=== PATIENT | female | born 1935 | race Caucasian/White ===

== ENCOUNTER 2017-01-14 11:25 | Inpatient (IN) | payer MEDICARE, OTHER ==
[~2017-01-14] VITALS: Ht 177.8 cm; Wt 67.4 kg
[~2017-01-14 11:25] MED LIST: ASPIRIN81 MG PO; COUMADIN1 MG PO; COUMADIN4 MG PO; FLAGYL500 MG PO; GLUCOPHAGE500 MG PO; HUMALOG 30100 UNITS/ SC; HUMOLOG INSULIN; LEVAQUIN250 MG PO; LEVAQUIN500 MG PO; LEVOTHYROXINE75 MCG; LEVOTHYROXINE75 MCG PO; LOPRESSOR50 MG PO; LOVENOX30 MG/0.3 SC; NARCAN INJ0.4 MG/ML IV; NORVASC10 MG PO; PACERONE200 MG PO; PERCOCET 5/3251 TA1 PO; PLAVIX75 MG PO; PRAVACHOL20 MG PO; PROTONIX40 MG PO; SALINE FLUSH10 ML IJ; SYNTHROID88 MCG PO; TYLENOL325 MG PO; ZESTRIL10 MG PO; ZESTRIL40 MG PO; ZOFRAN4 MG PO
--- NOTE | 2017-01-14 11:30 | NUR ---
ARRIVE TO ROOM VIA WHEELCHAIR FROM DOCTOR'S OFFICE. ALERT AND ORIENTED. AMBULATE FROM WHEELCHAIR TO BED WITH CANE FROM HOME. UNABLE TO COMPLETE SENTENCE WITHOUT GETTING SOB. RECIEVES LOVENOX INJ. IV SITED TO LT AC 22G SUCCESSFUL X2 ATTEMPT. CONTINUE ADMISSION PROCESS. BED LOCKED AND LOW. CALL LIGHT IN REACH. TWO SIDERAILS UP.
[2017-01-14 12:55] LABS: BASOPHILS 0.4 % (0.0-2.0); EOSINOPHILS 2.9 % (0-7); HEMOGLOBIN 9.5 g/dL (12-16); IMMATURE GRANULOCYTES 0.2 % (0-5); LYMPHOCYTES 18.4 % (15-50); MCH 28.3 pg (26.0-34.0); MCHC 31.7 g/dL (31.0-37.0); MCV 89.3 fL (80.0-100.0); MONOCYTES 12.3 % (2-11); NEUTROPHILS 65.8 % (40-80); PLATELET COUNT 279 10x3/uL (130-400); RBC 3.36 10x6/uL (4.00-5.40); RDW 13.8 % (11.5-14.5); WBC 4.5 10x3/uL (4.8-10.8)
[2017-01-14 13:11] LABS: ALBUMIN 3.7 g/dL (3.4-5.0); ANION GAP 14.3 mmol/L (8-16); BILIRUBIN - TOTAL 0.45 mg/dL (0.2-1.3); CALCIUM 10.1 mg/dL (8.5-10.1); CARBON DIOXIDE 25.3 mmol/L (21.0-32.0); CREATININE - SERUM 1.3 mg/dL (0.6-1.3); POTASSIUM - SERUM 3.6 mmol/L (3.5-5.1); PROTEIN - SERUM 7.7 g/dL (6.4-8.2)
[2017-01-14 13:38] VITALS: BP 214/86; BMI 20.2
[2017-01-14 16:00] VITALS: BP 154/64
--- NOTE | 2017-01-14 17:52 | NUR ---
RESTING IN BED. NO CHANGE. DAUGHTER AT BEDSIDE. DENIES PAIN. CONTINUE PLAN OF CARE AND SAFETY PRECAUTIONS.
--- NOTE | 2017-01-14 21:10 | NUR ---
HS MEDS GIVEN WITH FRESH ICE WATER, DENIES PAIN OR NEEDS, BED LOW, CL IN REACH.
[2017-01-14 21:39] VITALS: BP 154/63
--- NOTE | 2017-01-14 22:33 | NUR ---
IN BED WATCHING TV, DENIES NEEDS.
--- NOTE | 2017-01-15 00:34 | NUR ---
MANAGER MENTAL HEALTH AT BEDSIDE TO OBTAIN VITALS, CALL LIGHT IN REACH. WILL CONTINUE WITH PLAN OF CARE.
[2017-01-15 01:40] VITALS: BP 178/73
--- NOTE | 2017-01-15 04:36 | NUR ---
RESTING WITH EYES CLOSED, RESPERATIONS EVEN, NO S/S DISTRESS NOTED.
[2017-01-15 04:56] VITALS: BP 136/66
--- NOTE | 2017-01-15 07:17 | NUR ---
ASSESSMENT COMPLETED. DENIES ANY NEEDS. PT GETS UP WITH ASSIST. WILL MONITOR.SR UP WITH CALL LIGHT IN REACH
[2017-01-15 08:01] VITALS: BP 149/58
[2017-01-15 12:24] VITALS: BP 103/64
[2017-01-15 13:28] VITALS: Ht 177.8 cm; Wt 67.4 kg
[2017-01-15 16:00] VITALS: BP 131/68
--- NOTE | 2017-01-15 16:06 | NUR ---
LYING QUIETLY. DENIES ANY NEEDS. CALL LIGHT IN REACH WITH SR UP
--- NOTE | 2017-01-15 19:46 | NUR ---
RESUMED CARE OF PT, LYING IN BED RESPIRATIONS EVEN AND UNLABORED ON ROOM AIR. LEFT AC SALINE LOCKED. PLAN OF CARE DISCUSSED, CALL LIGHT IN REACH. WILL CONTINUE TO MONITOR. SEE NURSE ASSESSMENT.
[2017-01-15 20:00] VITALS: BP 136/66
[2017-01-15 21:58] LABS: % SATURATION 8 % (15-55); IRON 29 ug/dl (35-150); TOTAL IRON BIND CAPACITY 336 ug/dl (260-445); UNSAT IRON BIND CAPACITY 307 ug/dl (150-375)
[2017-01-16] VITALS: BP 120/58
[2017-01-16 04:00] VITALS: BP 138/68
[2017-01-16 08:22] VITALS: BP 160/62
--- NOTE | 2017-01-16 10:21 | NUR ---
0715-AM ROUNDING: PT LAYING IN BED ON BACK WITH EYES CLOSED RESTING. ON ROOM AIR. NO MONITOR. IV SEEN TO LEFT AC THAT IS CURRENTLY SALINE LOCKED. SCDS ARE AT BEDSIDE. NO NEED AT CURRENT TIME. WILL CONTINUE TO MONITOR.
--- NOTE | 2017-01-16 12:39 | NUR ---
Nutrition follow-up: Diet: ADA consistent CHO PO intake 100% of most meals labs reviewed Wt: 148# RDN following.
[2017-01-16 12:42] VITALS: BP 111/59
--- NOTE | 2017-01-16 13:27 | HP ---
PATIENT: PHAN QUEZADA MEDICAL RECORD: [id number] ACCOUNT: [id number] LOCATION:[address] : 33 ADMISSION DATE: 01/14/17 HISTORY AND PHYSICAL EXAMINATION DATE OF ADMISSION: 01/14/2017 CHIEF COMPLAINT: Pneumonia. HISTORY OF PRESENT ILLNESS: This is an 81-year-old female who presented to my office with fevers, chills, myalgias over the last 5-6 days. She has had fever to go along with it as well as a cough. She just gotten weaker and weaker and had difficulty walking down our apple and our office. Chest x-ray in my office showed right lower lobe pneumonia and right middle lobe with her age, with her medical problems, and her inability to walk down the apple. She is being admitted for further evaluation of her pneumonia. PAST MEDICAL AND SURGICAL HISTORY: She has arthritis, type 2 diabetes, hyperlipidemia, hypertension, hypothyroidism, right carotid bruit, atrial fibrillation and sick sinus syndrome. PAST SURGICAL HISTORY: Hysterectomy, partial thyroidectomy, pacemaker and ORIF of a hip fracture in October 2013. ALLERGIES: SULFA. HOME MEDICATIONS: Metformin 500 mg once a day, Plavix 75 mg once a day, metoprolol tartrate 25 mg twice a day, aspirin 81 mg once a day, amlodipine 10 mg once a day, pravastatin 20 mg at bedtime, levothyroxine 75 mcg once a day. HABITS: She never smoked. No history of alcohol or drug abuse. SOCIAL HISTORY: She is retired. She is . FAMILY HISTORY: Noncontributory. REVIEW OF SYSTEMS: GENERAL: No major weight changes. HEENT: No particular sinus or allergy problems. RESPIRATORY: No history of asthma or emphysema. CARDIAC: No known coronary artery disease, but has history of atrial fibrillation and sick sinus syndrome, now has a pacemaker. She is followed by [facility]. GASTROINTESTINAL: Occasional reflux. GENITOURINARY: No significant problems there. MUSCULOSKELETAL: He has occasional back pain. She fell and broke her hip a few years ago. NEUROLOGIC: No headaches or seizures. PSYCHIATRIC: Denies depression or melancholia. PHYSICAL EXAMINATION: VITAL SIGNS: Temperature 98.1, blood pressure 140/70, respirations 22, heart rate 58 beats per minute. GENERAL: She is awake and alert, does not appear in acute distress, but cannot walk down the apple due to weakness and fatigue. HISTORY AND PHYSICAL [id number] PHAN QUEZADA HEENT: Grossly within normal limits. NECK: Supple. She has a right carotid bruit. HEART: Regular rate and rhythm without murmur. LUNGS: Fairly clear. Few rales noted on the right side more than the left. ABDOMEN: Soft, flat, nontender. EXTREMITIES: No edema. LABORATORY DATA: CBC with a white count of 4500, hemoglobin 9.5, hematocrit 30, MCV 89.3. Basic metabolic panel is all okay except BUN 22. Liver functions are all normal. IMAGING: Chest x-ray done in our office shows a right middle and right lower lobe infiltrate. ASSESSMENT: 1. Community-acquired pneumonia. 2. Diabetes. 3. History of sick sinus syndrome, atrial fibrillation, hypothyroidism, hypertension. PLAN: We will admit for IV antibiotics, respiratory treatment. Other tests and procedures as warranted. TRANSINT:[id number] Voice Confirmation ID: [id number] DOCUMENT ID: [id number] JEANNIE UNDERWOOD MD at 1327 CC: [id number] DICTATION DATE: 01/15/171949 DOUGH BRAKE MACHINE OPERATOR: 01/15/172125 ADM IN [facility] [address] [id number]
[2017-01-16 16:55] VITALS: BP 118/60
--- NOTE | 2017-01-16 18:08 | NUR ---
PT SITTING UP IN CHAIR WITH EYES OPEN RESTING. NO NEED AT CURRENT TIME. WILL CONTINUE TO MONITOR.
--- NOTE | 2017-01-16 19:30 | NUR ---
INITIAL ROUNDS COMPLETED. PT DENIES ANY DISCOMFORT. WILL CONTINUE TO MONITOR.
[2017-01-16 21:31] VITALS: BP 143/67
--- NOTE | 2017-01-16 22:15 | NUR ---
ASSESSMENT COMPLETED AT 2014 HRS. VSS. IV TO LAC SL. LUNGS DIMINISHED IN BASES BILAT. PPM NOTED. PALPABLE PERIPHERAL PULSES. ALERT AND ORIENTED TO PERSON, PLACE AND TIME. SCD'S OFF PER PT AT THIS TIME. PM MEDS GIVEN. PT CURRETNLY RESTING WITH EYES CLOSED. RESP EVEN AND REGULAR. SR UP X2, CALL LIGHT WITHIN REACH.
--- NOTE | 2017-01-17 00:29 | NUR ---
TYLENOL 650 MG PO GIVEN FOR C/O MERA. WILL CONITNUE TO MONITOR.
--- NOTE | 2017-01-17 02:14 | NUR ---
PT RESTING WITH EYES CLOSED. RESP EVEN AND REGULAR. SR UP X2, CALL LIGHT WITHIN REACH.
--- NOTE | 2017-01-17 04:21 | NUR ---
PT RESTING WITH EYES CLOSED. RESP EVEN AND REGULAR. SR UP X2, CALL LIGHT WITHIN REACH.
[2017-01-17 05:53] VITALS: BP 126/58
--- NOTE | 2017-01-17 06:36 | NUR ---
VSS THROUGHOUT NIGHT. PT DENIED ANY DISCOMFORT. NEEDS MET; WILL CONTINUE TO MONITOR.
--- NOTE | 2017-01-17 07:33 | NUR ---
RECEIVED PT REPORT. WILL CONTINUE PLAN OF CARE. NO OTHER NEEDS AT THIS TIME. WILL CONTINUE TO MONITOR.
[2017-01-17 09:12] LABS: FOLATE (FOLIC ACID) - SERUM 15.3 ng/mL (>3.0)
[2017-01-17 09:19] VITALS: BP 162/56
[2017-01-17 12:21] VITALS: BP 169/64
[2017-01-17 15:49] VITALS: BP 136/54
--- NOTE | 2017-01-17 16:51 | NUR ---
PT IS ALERT. NO OTHER NEEDS AT THIS TIME. ASSESSMENT DONE PER FLOWSHEET. NOOTHER NEEDS AT THIS TIME. WILL CONTINUE TO MOTNIOR.
[2017-01-17 21:37] VITALS: BP 169/50
--- NOTE | 2017-01-17 23:02 | NUR ---
INITIAL ROUNDS COMPLETED AT 1920 HRS. PT DENEID ANY DISCOMFORT. ASSESSMENT COMPETED AT 2015 HRS. VSS. O2 PER RA. IV TO LAC SL. LUNGS DIMINISHED IN BASES BILAT. NON-PRODUCTIVE COUGH NOTED. PT AMBULATORY WITH CANE. PM MEDS GIVEN. PT CURRENTLY RESTING WITH EYES CLOSED. RESP EVEN AND REGULAR. SR UP X2, CALL LIGHT WITHIN REACH.
--- NOTE | 2017-01-18 00:05 | NUR ---
PT RESTING WITH EYES CLOSED. RESP EVEN AND REGULAR. SR UP X2, CALL LIGHT WITHIN REACH.
[2017-01-18 00:30] VITALS: BP 171/62
--- NOTE | 2017-01-18 02:00 | NUR ---
PT RESTING WITH EYES CLOSED. RESP EVEN AND REGULAR. SR UP X2, CALL LIGHT WITHIN REACH.
--- NOTE | 2017-01-18 04:25 | NUR ---
PT RESTING WITH EYES CLOSED. RESP EVEN ADN REGULAR. SR UP X2, CALL LIGHT WITHIN REACH.
[2017-01-18 04:30] VITALS: BP 145/61
[2017-01-18 06:24] LABS: BASOPHILS 0.5 % (0.0-2.0); EOSINOPHILS 0.7 % (0-7); HEMATOCRIT 26.8 % (36.0-48.0); HEMOGLOBIN 8.6 g/dL (12-16); IMMATURE GRANULOCYTES 0.5 % (0-5); LYMPHOCYTES 14.5 % (15-50); MCH 28.4 pg (26.0-34.0); MCHC 32.1 g/dL (31.0-37.0); MCV 88.4 fL (80.0-100.0); MEAN PLATELET VOLUME 9.5 fL (7.4-10.4); MONOCYTES 18.8 % (2-11); PLATELET COUNT 295 10x3/uL (130-400); RBC 3.03 10x6/uL (4.00-5.40); RDW 14.1 % (11.5-14.5)
[2017-01-18 06:30] LABS: ANION GAP 12.3 mmol/L (8-16); CALCIUM 9.5 mg/dL (8.5-10.1); CARBON DIOXIDE 25.3 mmol/L (21.0-32.0); CREATININE - SERUM 1.1 mg/dL (0.6-1.3); POTASSIUM - SERUM 3.6 mmol/L (3.5-5.1)
--- NOTE | 2017-01-18 06:41 | NUR ---
VSS THROUGHOUT NIGHT. PT DENIED ANY DISCOMFORT. NEEDS MET; WILL CONTINUE TO MONITOR.
[2017-01-18 08:59] VITALS: BP 152/60
--- NOTE | 2017-01-18 09:30 | NUR ---
UPON SHIFT ASSESSMENT AND MEDICATION PASS NOTED PTS L.FA PIV TO BE VERY REDDENED WARM TO THE TOUCH AND SWOLLEN HARD. ATTEMPTED TO FLUSH AND IT FLUSHED BUT APPEARS INFILTRATED. D/C WITH CATHETER TIP FULLY INTACT. WILL TRY TO REGAIN ACCESS WHEN ABLE TO. PT RESTING QUIETLY IN BED DENIES ANY CURRENT PAIN OR NEEDS. CL IN REACH, BED IN LOWEST, SIDE RAILS X2. WILL CPOC.
--- NOTE | 2017-01-18 11:58 | NUR ---
ATTEMPTED NEW IV ACCESS VIA L.FA WITH 22 GUAGE. IV BLEW. PLACED BAND-AID OVER SITE. NO OTHER VEINS NOTED WILL HAVE A DIFFERENT NURSE TRY WHEN AVAILABLE.
[2017-01-18 12:14] VITALS: BP 129/60
--- NOTE | 2017-01-18 13:25 | NUR ---
22 GUAGE PIV ACCESS GRANTED X1 ATTEMPT VIA ERINN GARCES SUPERINTENDENT PIER NURSE. INITIATED PTS IVPB ROCEPHIN INFUSING IN THAT L.FA NEW ACCESS. PT SITTING UP IN BED RESTING QUIETLY AND DENIES ANY CURRENT PAIN OR FURTHER NEEDS. CL IN REACH, BED IN LOWEST, SIDE RAILS X2. WILL CPOC.
[2017-01-18 16:13] VITALS: BP 155/65
[2017-01-18 21:37] VITALS: BP 149/55
[2017-01-19 00:30] VITALS: BP 164/58
[2017-01-19 04:45] VITALS: BP 102/60
--- NOTE | 2017-01-19 05:44 | NUR ---
NO CHANGES FROM PREVIOUS ASSESSMENT, RESTED THROUGHOUT THE NIGHT. CALL LIGHT IN REACH. WILL CONTINUE TO MONITOR.
[2017-01-19 06:31] LABS: BASOPHILS 0.2 % (0.0-2.0); EOSINOPHILS 0.3 % (0-7); HEMATOCRIT 30.2 % (36.0-48.0); HEMOGLOBIN 9.6 g/dL (12-16); IMMATURE GRANULOCYTES 0.3 % (0-5); LYMPHOCYTES 8.6 % (15-50); MCH 28.1 pg (26.0-34.0); MCHC 31.8 g/dL (31.0-37.0); MCV 88.3 fL (80.0-100.0); MEAN PLATELET VOLUME 9.7 fL (7.4-10.4); MONOCYTES 13.4 % (2-11); NEUTROPHILS 77.2 % (40-80); PLATELET COUNT 302 10x3/uL (130-400); RBC 3.42 10x6/uL (4.00-5.40); RDW 14.2 % (11.5-14.5); WBC 6.6 10x3/uL (4.8-10.8)
[2017-01-19 06:43] LABS: ANION GAP 11.7 mmol/L (8-16); CALCIUM 9.5 mg/dL (8.5-10.1); CARBON DIOXIDE 24.9 mmol/L (21.0-32.0); CREATININE - SERUM 1.2 mg/dL (0.6-1.3); POTASSIUM - SERUM 3.6 mmol/L (3.5-5.1)
[2017-01-19 07:59] VITALS: BP 131/56
[2017-01-19 11:56] VITALS: BP 118/48
[2017-01-19 16:27] VITALS: BP 136/68
--- NOTE | 2017-01-19 19:35 | NUR ---
ASSESSMENT DONE. PT A/O. LAYING IN BED WATCHING TV. C/O NON- PRODUCTIVE COUGH. PRN COUGH MED GIVEN. LUNGS SOUNDS CLEAR BILATERALLY. PT DENIES OTHER NEEDS AT THIS TIME. CALL LIGHT WITH IN REACH. WILL CONT. TO MONITOR.
[2017-01-19 21:40] VITALS: BP 149/66
--- NOTE | 2017-01-19 23:24 | NUR ---
PT SLEEPING. EYES CLOSED, RESP EVEN AND UNLABORED. NO DISTRESS NOTED. COUGHING SEEMS TO BE CONTROLLED FOR NOW. CALL LIGHT WITH IN REACH. PT WEARING SCD'S. WILL CONT. TO MONITOR.
[2017-01-20 02:00] VITALS: BP 110/48
--- NOTE | 2017-01-20 02:33 | NUR ---
PT SLEEPING. SNORING. APPEARS COMFORTABLE. NO DISTRESS NOTED. CALL LIGHT WITH IN REACH. WILL CONT. TO MONITOR.
--- NOTE | 2017-01-20 06:53 | NUR ---
ASSISTED PT TO RESTROOM. PT A/O. DENIES NEEDS. COUGHING, PRN COUGH MED GIVEN.
--- NOTE | 2017-01-20 07:00 | NUR ---
RECEIVED REPORT. ASSUMED CARE OF PATIENT. PATIENT LYING IN BED WITH EYES OPEN, RESP EVEN AND UNLABORED. FREQUENT DRY COUGH NOTED. CALL LIGHT WITHIN REACH. REAPPLIED SCDS. DENIES NEEDS AT THIS TIME. NO DISTRESS.
[2017-01-20 08:07] VITALS: BP 133/65
--- NOTE | 2017-01-20 09:19 | NUR ---
IV SITE FOUND TO BE INFILTRATED TO LEFT FOREARM. WILL RESITE. PATIENT MADE AWARE.
[2017-01-20 12:22] VITALS: BP 121/46
--- NOTE | 2017-01-20 13:08 | NUR ---
22 GAUGE IV PLACED TO RIGHT HAND X 1 STICK VIA VASCULAR ACCESS NURSE. GOOD BLOOD RETURN, EASY FLUSH. TOLERATED IV PLACEMENT WELL. NO DISTRESS.
[2017-01-20 16:10] VITALS: BP 109/55
--- NOTE | 2017-01-20 18:38 | NUR ---
RESTING WITH EYES OPEN. DENIES NEEDS. CALL LIGHT WITHIN REACH. NO DISTRESS.
--- NOTE | 2017-01-20 19:50 | NUR ---
ASSESSMENT DONE. PT LAYING IN BED WATCHING. A/O. COUGHING. PRN COUGH MED GIVEN. PT DENIES OTHER NEEDS AT THIS TIME. CALL LIGHT WITH IN REACH. WILL CONT. TO MONITOR.
[2017-01-20 20:00] VITALS: BP 143/66
[2017-01-21] VITALS: BP 161/63
--- NOTE | 2017-01-21 03:45 | NUR ---
PT SLEEPING. EYES CLOSED, RESP EVEN AND UNLABORED. APPEARS COMFORTABLE. CALL LIGHT WITH IN REACH. WILL CONT. TO MONITOR.
[2017-01-21 04:00] VITALS: BP 135/70
--- NOTE | 2017-01-21 06:09 | NUR ---
PT SLEEPING. EASILY AWAKEN. MORNING SYNTHROID GIVEN. PT REQUESTED PRN COUGH MED. PT STATES " I THINK I RESTED BETTER LASTNIGHT." PT GIVEN FRESH WATER. DENIES NEEDS AT THIS TIME. CALL LIGHT WITH IN REACH. WILL CONT. TO MONITOR.
[2017-01-21 08:00] VITALS: BP 130/61
--- NOTE | 2017-01-21 08:00 | NUR ---
PT SITTING UP IN BED DENIES NEEDS WILL CONT TO MONITOR.
[2017-01-21] MEDS ORDERED: FERROUS SULFAT325 MG PO (08:35)
[2017-01-21] MEDS ORDERED: AUGMENTIN 875-11 TAB PO (08:36)
[2017-01-21] MEDS ORDERED: ROBITUSSIN AC (10 M1 PO (08:37)
--- NOTE | 2017-01-21 10:13 | NUR ---
PT DECLINED HOME HEALTH FOR DR UNDERWOOD. TALKED WITH PT ABOUT RECEIVING HOME HEALTH AND EXPLAINED IT MORE. PT IS MORE OPEN TO IT. TALKED WITH BRANDAN GLOBAL SALES MANAGER ABOUT IT.
[2017-01-21 12:00] VITALS: BP 149/68
--- NOTE | 2017-01-21 12:13 | NUR ---
Patient Name: PHAN QUEZADA Admission Status: Elective Accout number: [id number] Admission Date: 01-14-2017 : 1935 Admission Diagnosis:PNEUMONIA, UNSPECIFIED ORGANISM Attending: MARCK Current LOS: 7 Anticipated DC Date: 01-21-2017 Planned Disposition: Home Primary Insurance: MEDICARE A & B Discharge Planning Comments: * Is the patient Alert and Oriented? Yes 0 * How many steps to enter\exit or inside your home? 5 0 * PCP DR. UNDERWOOD 0 * Pharmacy [facility] [address] 0 * Preadmission Environment Home with Family 0 * ADLs Independent 0 * Equipment [facility] Bed Shower Chair Walker Wheelchair 0 * Other Equipment NO MEDICAL EQUIPMENT PROVIDER PREFERENCE 0 * List name and contact numbers for known caregivers / representatives who currently or will assist patient after discharge: BIANCA QUEZADA, SON, 0 * Community resources currently utilized None 0 * Please name any agencies selected above. NONE 0 * Additional services required to return to the preadmission environment? No 0 * Can the patient safely return to the preadmission environment? Yes 0 * Has this patient been hospitalized within the prior 30 days at any hospital? No 0 CM RECEIVED DISCHARGE ORDER, SPOKE TO THERAPY WHO REPORTED PT TO BE WOBBLY DURING GAIT TODAY AND RECOMMENDED CONTINUED THERAPY POST DISCHARGE. CM MET WITH PT AND SON IN ROOM TO DISCUSS DISCHARGE PLANNING AND NEEDS. PT REPORTS LIVING AT HOME INDEPENDENTLY; PT REPORTS HER ADULT GRANDSON LIVES WITH HER AND IS HOME WITH HER AT ALL TIMES TO ASSIST IF NEEDED. PT REPORTS HAVING ALL NEEDED EQUIPMENT AND NO MEDICAL EQUIPMENT PROVIDER PREFERENCE. PT HAS NOT HAD HOME HEALTH IN THE PAST AND HAS NO OUTSIDE SERVICES ASSISTING IN THE HOME. CM DISCUSSED AVAILABILITY OF HOME HEALTH, REHAB SERVICES AND MEDICAL EQUIPMENT. PT DENIES DISCHARGE NEEDS, REPORTS HER SON IS HERE TO PICK HER UP TODAY FOR DISCHARGE HOME. IMPORTANT MESSAGE FROM MEDICARE PROVIDED AND EXPLAINED. CM DISCUSSED THERAPY CONCERNS AND ENCOURAGED PT TO AT LEAST CONSIDER HOME HEALTH. HOME HEALTH DISCUSSED AT LENGTH. PT REFUSED. PT'S SON STATES THAT PT MAKES HER OWN DECISIONS AND THEY WILL CALL THE DOCTORS OFFICE IF THEY GET HOME AND DECIDE HOME HEALTH IS NEEDED. CM PROVIDED HOME HEALTH LISTING, BROCHURES FOR [facility] AND CM CONTACT INFORMATION AND OFFERED TO ARRANGE HOME HEALTH PRIOR TO DISCHARGE IF PT CHANGES HER MIND. PT PLANS TO DISCHARGE HOME WITH ADULT GRANDSON WHO IS HOME AT ALL TIMES TO ASSIST PT IF NEEDED. PT'S SON TO TRANSPORT PT HOME. PT DECLINES HOME HEALTH, DENIES NEEDS. CM TO FOLLOW AND ASIST IF NEEDED. Salicylic Acid Blender: Basil Ivan
--- NOTE | 2017-01-21 12:17 | NUR ---
AFTER AGREEING TO HOME HEALTH WITH ME. PT REFUSED TO HAVE ANY TYPE OF THERAPY AT HOME OR AT A REHAB FACILITY WITH KATJA CONE OPERATOR. PT SON TRIED TO GET HER TO AGREE TO IT WELL, BUT SHE STILL REFUSED.
--- NOTE | 2017-01-21 14:05 | NUR ---
WENT OVER DC PAPERWORK WITH PT PT VERBALIZES UNDERSTANDING. DC PIV WITH CATHETER TIP INTACT. PT TO BE WHEELED OUT VIA VOLUNTEER. SON IS HERE TO DRIVE HER HOME
== END 2017-01-21 14:11 | disposition home or self-care (01) | DRG 195 ==
LOC: D.M2 11:25
PROVIDERS: Family Medicine; ADMIT Family Medicine
DX: J18.9 Pneumonia, unspecified organism (principal); E11.9 Type 2 diabetes mellitus without complications; E78.5 Hyperlipidemia, unspecified; I10 Essential (primary) hypertension; E03.9 Hypothyroidism, unspecified; I48.91 Unspecified atrial fibrillation; Z95.0 Presence of cardiac pacemaker; D50.9 Iron deficiency anemia, unspecified

== ENCOUNTER 2017-01-30 10:38 | Inpatient (IN) | payer MEDICARE, OTHER ==
[~2017-01-30] VITALS: Ht 177.8 cm; Wt 66.8 kg
[~2017-01-30 10:38] MED LIST changes: +AUGMENTIN 875-11 TAB PO; +FERROUS SULFAT325 MG PO; +ROBITUSSIN AC (10 M1 PO
[2017-01-30 12:23] VITALS: BP 171/71; Ht 177.8 cm; Wt 66.8 kg
--- NOTE | 2017-01-30 14:44 | NUR ---
IV ACCESS-22 GAUGE INSERTED IN LEFT HAND. ERIC RIVERA RN
[2017-01-30 16:32] VITALS: BP 137/58
[2017-01-30 19:00] VITALS: BP 126/57
--- NOTE | 2017-01-30 19:20 | NUR ---
RECIEVED SHIFT REPORT. PT IS LYING IN BED. ALERT AND ORIENTED AND ABLE TO VERBALIZE NEEDS. IV IS PATENT AND FLUIDS ARE RUNNING PER ORDER. PT IS AMBULATORY BUT WAS INSTRUCTED TO CALL FOR ANY ASSISTANCE NEEDED. PT DENIES ANY PAIN AT THIS TIME. NO NEEDS ARE VERBALIZED AT THIS TIME. WILL CONTINUE TO MONITOR. SIDE RAILS ARE UP X 2. BED IS IN LOWEST POSITION. CALL LIGHT IS WITHIN REACH.
[2017-01-30] MEDS ORDERED: TOPROL XL25 MG PO (20:19)
--- NOTE | 2017-01-30 21:18 | NUR ---
SHIFT ASSESSMENT COMPLETED. NIGHT MEDS GIVEN WITH NO PROBLEMS. NO NEEDS ARE VOICED. WILL MONITOR. SIDE RAILS X 2. BED LOW. CALL LIGHT IN REACH.
--- NOTE | 2017-01-31 07:45 | NUR ---
AWAKE AND ALERT AT THIS TIME. RECEIVING UPDRAFT. OXYGENATION VIA ROOM AIR. RESPIRATIONS EVEN AND NON LABORED. DENIES NEEDS AT PRESENT TIME. SELF POSITIONS AND AMBULATES WITH THE ASSISTANCE OF A CANE. CALL LIGHT IN REACH, WILL CONTINUE WITH PLAN OF CARE.
[2017-01-31 08:40] VITALS: BP 154/58
--- NOTE | 2017-01-31 08:48 | NUR ---
SCHEDULED MEDICATIONS ADMINISTERED AT THIS TIME WITHOUT DIFFICULTY. ASSESSMENT PERFORMED PER FLOWSHEET. DENIES NEEDS OR PAIN AT THIS TIME. AMBULATES WITH THE ASSISTANCE OF HER CANE. CALL LIGHT IN REACH, WILL CONTINUE WITH PLAN OF CARE.
--- NOTE | 2017-01-31 11:02 | HP ---
PATIENT: PHAN QUEZADA MEDICAL RECORD: [id number] ACCOUNT: [id number] LOCATION:[address] : 33 ADMISSION DATE: 01/30/17 HISTORY AND PHYSICAL EXAMINATION Admission History and Physical DATE OF ADMISSION: 01/30/2017. CHIEF COMPLAINT: Cough, shortness of breath, pulmonary embolus. HISTORY OF PRESENT ILLNESS: This is an 81-year-old white female, who I admitted into [facility] on 01/14/2017 with right-sided pneumonia. She was discharged on January 21. She came in to my office today for followup of that. She is still quite weak. She has shortness of breath just walking across the room. She has a cough that has continued. I seen her from my office. She was also found to have iron deficiency anemia and started on iron pills. I have seen to [facility] for an outpatient CT of the chest with PE protocol and got a phone call from the radiologist showing that the patient had bilateral PEs and she is admitted now and started on subcutaneous Lovenox, pulmonary will be consulted. PAST MEDICAL HISTORY: She has a long history of arthritis. She has type 2 diabetes, is well controlled, hyperlipidemia, hypertension, hypothyroidism, right carotid bruit. She has had paroxysmal atrial fibrillation, sick sinus syndrome, followed by Dr. Matta. She was also found to have a coronary artery disease and got a stent last year by Dr. Matta. At that time, she was stopped on her Coumadin that she has been on for years and she was on Plavix. PAST SURGICAL HISTORY: Hysterectomy, partial thyroidectomy, pacemaker placement, ORIF of a hip fracture in October 2013. ALLERGIES: SULFA. CURRENT MEDICATIONS: Metformin 500 mg once a day, iron sulfate 325 one pill twice a day, Robitussin with codeine 2 teaspoons every 4 hours as needed for cough, Plavix 75 mg once a day, metoprolol tartrate 25 mg twice a day, aspirin 81 mg once a day, amlodipine 10 mg once a day, pravastatin 20 mg at bedtime, levothyroxine 75 mcg once a day. SOCIAL HISTORY: She is retired. She is . HABITS: Never smoked. No history of alcohol or drug use. REVIEW OF SYSTEMS: GENERAL: No major weight changes. HEENT: No particular sinus or allergy problems. RESPIRATORY: No history of asthma or emphysema. CARDIAC: See above history with sick sinus syndrome, atrial fibrillation and coronary artery disease, followed by Dr. Matta. GASTROINTESTINAL: She has had some reflux problems in the past. GENITOURINARY: Occasional UTI. MUSCULOSKELETAL: She has had arthritic aches and pains and had a hip fracture. NEUROLOGY: No migraines. No seizures. PSYCHIATRIC: No depression or melancholia. HISTORY AND PHYSICAL [id number] PHAN QUEZADA PHYSICAL EXAMINATION: VITAL SIGNS: Temperature 97.5, pulse 75, respirations 18, blood pressure 171/71. GENERAL: She does not appear in acute distress. She is in a wheelchair in my office and now resting comfortably in bed, in room 2203, awake, alert, no distress. HEART: Regular rate and rhythm. LUNGS: Clear. ABDOMEN: Soft. EXTREMITIES: No edema. LABORATORY DATA: CBC in my office showed hemoglobin of 8.8. White count was normal. Basic metabolic panel: Creatinine of 1.26. ASSESSMENT: 1. Bilateral pulmonary emboli. 2. Iron deficiency anemia. 3. History of paroxysmal atrial fibrillation. 4. History of sick sinus syndrome with pacemaker. 5. Coronary artery disease. PLAN: We will admit, start on subcutaneous Lovenox. We will probably restart Coumadin. We will ask pulmonary to see her. Other tests and procedures as warranted. TRANSINT:[id number] Voice Confirmation ID: [id number] DOCUMENT ID: [id number] JEANNIE UNDERWOOD MD at 1102 CC: [id number] DICTATION DATE: 01/30/17 1357 MULTIMEDIA PRODUCER: 01/30/17 1427 [facility] [address] [id number]
[2017-01-31 12:34] VITALS: BP 144/61
--- NOTE | 2017-01-31 16:30 | NUR ---
NO CHANGES SINCE INITIAL ASSESSMENT. DENIES NEEDS OR PAIN AT THIS TIME. CALL LIGHT IN REACH. WILL CONTINUE WITH PLAN OF CARE.
[2017-01-31 16:34] VITALS: BP 141/64
[2017-01-31 21:36] VITALS: BP 142/69
--- NOTE | 2017-02-01 07:34 | NUR ---
AWAKE AND ALERT AT THIS TIME RECEIVING RESPIRATORY TREATMENT. DENIES PAIN AT THIS TIME. RESPIRATIONS EVEN AND NON LABORED. CALL LIGHT IN REACH. PT STATES, "MY IV STARTED LEAKING LAST NIGHT, SO THAT IS WHY IT IS DISCONNECTED." ENSURED PATIENT THAT I WOULD CHECK THE IV FOR PATENCY BEFORE STARTING A NEW ONE. PT VERBALIZED UNDERSTANDING. AMBULATES AND SELF POSITIONS FOR COMFORT. BED IN LOWEST POSITION WITH WHEELS LOCKED. CALL LIGHT IN REACH. WILL CONTINUE WITH PLAN OF CARE.
[2017-02-01 07:53] VITALS: BP 140/62
--- NOTE | 2017-02-01 08:06 | NUR ---
SCHEDULED MEDICATIONS ADMINISTERED AT THIS TIME, WELL PRN COUGH SYRUP. ASSESSMENT PERFORMED PER FLOWSHEET. PT SELF POSITIONS AND AMBULATES INDEPENDENTLY. IV TO LEFT WRIST LEAKING AROUND INSERTION SITE. WILL RE-SITE IV. DENIES NEEDS OR PAIN. CALL LIGHT IN REACH, WILL CONTINUE WITH PLAN OF CARE.
--- NOTE | 2017-02-01 10:45 | NUR ---
YUP TO CHAIR PER PHYSICAL THERAPY. DAUGHTERS REMAIN AT BEDSIDE. DENIES NEEDS AT THIS TIME. CALL LIGHT IN REACH, WILL CONTINUE WITH PLAN OF CARE.
--- NOTE | 2017-02-01 11:29 | NUR ---
IV RESITED TO R FOREARM. X2 ATTEMPTS. 22 GUAGE. IV TO L HAND DC'D WITH CATHETER INTACT. PRESSURE AND DRESSING APPLIED. BED LOW, CALL LIGHT IN REACH, DENIES NEEDS. CPOC.
[2017-02-01 12:36] VITALS: BP 126/56
[2017-02-01 15:34] VITALS: BP 129/54
--- NOTE | 2017-02-01 20:08 | NUR ---
IN BED AWAKE AND ALERT. RESP EVEN AND UNLABORED WITH NO DISTRESS NOTED. CAN EXPRESS NEEDS AND WANTS WITH NONE STATED AT THIS TIME. NO C/O NOTED OR VOICED. ASSESSMENT COMPLETED. C/L IN REACH AT BEDSIDE.
[2017-02-01 22:19] VITALS: BP 152/53
--- NOTE | 2017-02-02 02:06 | NUR ---
EYES CLOSED RESPIRATIONS WITH EASE AND UNLABORED.
[2017-02-02 03:29] VITALS: BP 150/57
--- NOTE | 2017-02-02 07:00 | NUR ---
REPORT RECIEVED ASSUMED CARE. PATIENT IN BED WITH IV INTACT. PATIENT IN BED WITH IV INTACT. NO COMPLAINTS AT THIS TIME. CALL LIGHT WITHIN REACH.
[2017-02-02 07:52] VITALS: BP 152/57
--- NOTE | 2017-02-02 08:45 | NUR ---
PATIENT IN BED WITH IV INTACT. NO COMPLAINTS AT THIS TIME. FAMILY AT BEDSIDE. CALL LIGHT WITHIN REACH.
--- NOTE | 2017-02-02 11:00 | NUR ---
PATIENT AMBULATED WITH PT. NO PROBLEMS AT THIS TIME.
[2017-02-02 11:23] VITALS: BP 144/66
[2017-02-02 12:12] LABS: ACLA - IGG AB <9 GPL U/mL (0-14); ACLA - IGM AB 10 MPL U/mL (0-12)
--- NOTE | 2017-02-02 13:08 | NUR ---
Patient Name: PHAN QUEZADA Admission Status: Elective Accout number: [id number] Admission Date: 01-31-2017 : 1935 Admission Diagnosis: Attending: MARCK Current LOS: 2 Anticipated DC Date: 02-05-2017 Planned Disposition: Home with Home Health Primary Insurance: MEDICARE A & B Discharge Planning Comments: CM MET WITH PATIENT AND SON (HARRIET) REGARDING D/C NEEDS AND PLANS. PATIENT STATED THERE ARE 4 STEPS W/RAILS TO ENTER HOME AND SHE HAS 1 FLIGHT OF STAIRS W/RAILING IN HER HOME. PATIENTS SON OR FAMILY MEMBER WILL DRIVE HER HOME AT DISCHARGE. PATIENTS GRANDSON LIVES IN [place]-SHE STATED SHE NEVER USES THE STAIRS. PATIENTS PCP IS DR. UNDERWOOD AND PHARMACY IS [facility] [address]. PATIENT HAS A CANE, WALKER, BS COMMODE, SHOWER CHAIR, AND GLUCOMETER AT HOME. PATIENTS SON SIGNED THE [employer] FORM FOR [facility]. CM WILL CONTINUE TO FOLLOW PATIENT WITH D/C NEEDS AND PLANS. PCP DR[facility] [address]- [phone] HARRIET QUEZADA (SON) [phone] Telegraph Service Rater: Arianne Baird Is the patient Alert and Oriented? Yes 0 * How many steps to enter\exit or inside your home? 4 W/RAILS 0 * PCP DR. UNDERWOOD 0 * Pharmacy [facility] [address] 0 * Preadmission Environment Home with Family 0 * ADLs Independent 0 * Equipment Bedside Commode Cane Glucometer Shower Chair Walker 0 * List name and contact numbers for known caregivers / representatives who currently or will assist patient after discharge: HARRIET QUEZADA ([phone]) 0 * Community resources currently utilized None 0 * Additional services required to return to the preadmission environment? Yes 0 * Can the patient safely return to the preadmission environment? Yes 0 * Has this patient been hospitalized within the prior 30 days at any hospital? No 0 Grand Total: 0
--- NOTE | 2017-02-02 15:30 | NUR ---
PATIENT SITTING UP IN CHAIR WITH NO COMPLAINTS. IV INTACT. CALL LIGHT WITHIN REACH.
[2017-02-02 16:17] VITALS: BP 129/60
--- NOTE | 2017-02-02 18:35 | NUR ---
PATIENT IN BED WITH NO COMPLAINTS AT THIS TIME. IV INTACT. CALL LIGHT WITHIN REACH.
[2017-02-02 19:00] VITALS: BP 121/58
--- NOTE | 2017-02-02 19:00 | NUR ---
PATIENT IN BED WATCHING TV. HOB 40 DEGREES. AAOX4. RR EVEN AND UNLABORED. 0 S/S OF DISTRESS. DENIES PAIN AT THIS TIME. IV TO LEFT HAND PATENT WITH NO REDNESS OR SWELLING. SRX2. BED LOW. CALL LIGHT WITHIN REACH.
--- NOTE | 2017-02-02 21:00 | NUR ---
ASSESSMENT COMPLETE. NIGHTTIME MEDS GIVEN. NO OTHER NEEDS AT THIS TIME.
[2017-02-03] VITALS: BP 126/59
--- NOTE | 2017-02-03 03:45 | NUR ---
PATIENT SLEEPING WITH NO DISTRESS NOTED. CALL LIGHT WITHIN REACH.
[2017-02-03 04:00] VITALS: BP 120/67
[2017-02-03 06:40] LABS: INR 1.12 (0.85-1.17); PROTIME 14.2 SECONDS (11.6-15.0)
--- NOTE | 2017-02-03 07:00 | NUR ---
REPORT RECIEVED ASSUMED CARE. PATIENT IN BED WITH IV INTACT. NO COMPLAINTS AT THIS TIME. CALL LIGHT WITHIN REACH.
[2017-02-03 08:05] VITALS: BP 120/66
[2017-02-03 11:18] LABS: PROTEIN S - FREE 73 % (57-157); PROTEIN S - TOTAL 143 % (60-150)
[2017-02-03 12:15] VITALS: BP 110/51
[2017-02-03 13:17] LABS: PROTEIN S - FREE 86 % (57-157); PROTEIN S - FUNCTIONAL 115 % (63-140); PROTEIN S - TOTAL 169 % (60-150)
[2017-02-03 16:01] VITALS: BP 120/68
--- NOTE | 2017-02-03 18:45 | NUR ---
PATIENT IN BED WITH IV INTACT. NO COMPLAINTS AT THIS TIME. CALL LIGHT WITHIN REACH.
--- NOTE | 2017-02-03 18:45 | NUR ---
PATIENT IN BED WITH IV INTACT. NO COMPLAINTS AT THIS TIME. CALL LIGHT WITHIN REACH.
--- NOTE | 2017-02-03 19:00 | NUR ---
PATIENT IN BED WATCHING TV. HOB 45 DEGREES. AAOX4. RR EVEN AND UNLABORED. 0 S/S OF DISTRESS. DENIES PAIN AT THIS TIME. IV TO RIGHT FA RED BUT S/L. PATIENT STATES SHE STILL HAS NOT HAD BM. WILL NOTIFY PHYSICIAN. CALL LIGHT WITHIN REACH.
[2017-02-03 20:00] VITALS: BP 133/59
--- NOTE | 2017-02-03 22:30 | NUR ---
ASSESSMENT COMPLETE. NIGHTTIME MEDS GIVEN. SPOKE WITH DR. BRYANT. HE ORDERED MIRALAX BID AND DULCOLAX SUPPOSITORIES PRN. PATIENT STATES THAT SHE USES SUPPOSITORIES AT HOME AND WOULD RATHER HAVE THAT THAN THE MIRALAX. PATIENT TO ADMINISTER HERSELF. WILL CONTINUE TO MONITOR.
[2017-02-04] VITALS: BP 125/58
--- NOTE | 2017-02-04 | NUR ---
PATIENT HAD VERY SMALL, HARD BM. 1ST STOOL SAMPLE COLLECTED.
--- NOTE | 2017-02-04 03:00 | NUR ---
PATIENT HAD 2ND SMALL, HARD BM. SAMPLE COLLECTED.
[2017-02-04 04:00] VITALS: BP 129/60
--- NOTE | 2017-02-04 04:28 | NUR ---
PATIENT HAD 3RD SMALL BM. FINAL SAMPLE COLLECTED.
[2017-02-04 05:14] LABS: PROTEIN C - ANTIGEN 119 % (60-150); PROTEIN C - FUNCTIONAL 154 % (73-180)
[2017-02-04 06:21] LABS: INR 1.13 (0.85-1.17); PROTIME 14.4 SECONDS (11.6-15.0)
[2017-02-04 08:29] VITALS: BP 125/71
--- NOTE | 2017-02-04 08:50 | NUR ---
SCHEDULED MEDICATIONS ADMINISTERED AT THIS TIME. ASSESSMENT PERFORMED PER FLOWSHEET. CALL LIGHT IN REACH, DENIES NEEDS OR PAIN AT THIS TIME. WILL CONTINUE WITH PLAN OF CARE.
--- NOTE | 2017-02-04 11:30 | NUR ---
PT STATES THAT SHE GAVE HERSELF A SPONGE BATH, BUT WOULD LIKE A CLEAN GOWN. PROVIDED PT WITH GOWN. DENIES ANY NEEDS OR PAIN AT THIS TIME. CALL LIGHT IN REACH, WILL CONTINUE WITH PLAN OF CARE.
[2017-02-04 12:28] VITALS: BP 123/54
[2017-02-04 14:23] LABS: HEXAGONAL PHASE PHOS 8 sec (0-11); LUPUS - INTERPRETATION Comment: (()); LUPUS - THROMBIN TIME 15.6 sec (0.0-20.9); LUPUS - dRVVT 54.2 sec (0.0-44.0); LUPUS - dRVVT CONFIRMATION 1.1 ratio (0.8-1.2); PTT-LA 50.1 sec (0.0-43.6); PTT-LA MIX 44.7 sec (0.0-40.6)
--- NOTE | 2017-02-04 14:58 | NUR ---
SCHEDULED MEDICATIONS ADMINISTERED AT THIS TIME. PT DENIES NEEDS OR PAIN. CALL LIGHT IN REACH, WILL CONTINUE WITH PLAN OF CARE.
[2017-02-04 16:28] VITALS: BP 128/58
[2017-02-05 06:22] LABS: INR 1.22 (0.85-1.17); PROTIME 15.3 SECONDS (11.6-15.0)
--- NOTE | 2017-02-05 09:10 | NUR ---
JUST FINISHED SHOWER, DENIES NEEDS, ASSESSMENT COMPLETE, BED LOWEST POSITION, CALL LIGHT IN REACH, WILL CONTINUE TO MONITOR
[2017-02-05 09:52] VITALS: BP 142/80
[2017-02-05 11:48] VITALS: BP 141/56
[2017-02-05 15:49] VITALS: BP 132/51
[2017-02-05 17:11] LABS: FACTOR II DNA ANALYSIS Negative (())
[2017-02-05 20:00] VITALS: BP 165/63
[2017-02-06 04:56] LABS: PROTIME 18.3 SECONDS (11.6-15.0)
[2017-02-06 05:02] LABS: INR 1.53 (0.85-1.17)
--- NOTE | 2017-02-06 05:19 | NUR ---
ASSESSED AT THE BEGINNING OF THE SHIFT. PT IS ALERT AND ORIENTED, ABLE TO VERBALIZE NEEDS. SHE IS ALSO ABLE TO TURN AND REPOSITION HERSELF WELL GET UP TO THE BATHROOM SAFELY. SHE USES A CANE WHEN SHE GETS UP. THERE ARE NO FLUIDS INFUSING AND SHE HAS A PATENT SALINE LOCK. THE BED IS LOW, RAILS UP X'S 2 WITH THE CALL LIGHT AT HAND. SHE HAS RESTED QUIET MOST OF THE NIGHT AND HAS NOT HAD ANY COMPLAINTS.
--- NOTE | 2017-02-06 07:15 | NUR ---
PATIENT RECEIVED IN LOW PAPPAS POSITION RESTING WITH EYES CLOSED. RESPIRATIONS EVEN AND UNLABORED. SIDE RAILS UP X2. BED IN LOW POSITION. CALL LIGHT IN REACH.
[2017-02-06 08:03] VITALS: BP 134/55
--- NOTE | 2017-02-06 08:23 | NUR ---
ALERT IN BED. SCHEDULED MEDICATION ADMINISTERED. DENIES NEEDS. SIDE RAILS UP X2. BED IN LOW POSITION. CALL LIGHT IN REACH.
--- NOTE | 2017-02-06 11:30 | NUR ---
SITTING UP IN CHAIR TALKING ON PHONE. NO SIGNS OF DISTRESS NOTED. WILL CONTINUE TO MONITOR.
[2017-02-06 12:23] VITALS: BP 140/59
--- NOTE | 2017-02-06 14:00 | NUR ---
PATIENT UP AMBULATING IN HALLWAY WITHOUT ASSIST. NO SIGNS OF DISTRESS NOTED. DENIES NEEDS. WILL CONTINUE TO MONITOR.
[2017-02-06 15:24] VITALS: BP 147/55
[2017-02-06 20:00] VITALS: BP 140/51
[2017-02-07] VITALS: BP 135/51
[2017-02-07 04:00] VITALS: BP 147/59
[2017-02-07 05:10] LABS: BASOPHILS 0.3 % (0.0-2.0); HEMATOCRIT 26.6 % (36.0-48.0); HEMOGLOBIN 8.3 g/dL (12-16); IMMATURE GRANULOCYTES 0.3 % (0-5); LYMPHOCYTES 33.5 % (15-50); MCH 28.3 pg (26.0-34.0); MCHC 31.2 g/dL (31.0-37.0); MCV 90.8 fL (80.0-100.0); MEAN PLATELET VOLUME 9.9 fL (7.4-10.4); MONOCYTES 9.5 % (2-11); NEUTROPHILS 53.4 % (40-80); PLATELET COUNT 318 10x3/uL (130-400); RBC 2.93 10x6/uL (4.00-5.40); RDW 15.3 % (11.5-14.5); WBC 6.6 10x3/uL (4.8-10.8)
[2017-02-07 05:28] LABS: INR 1.96 (0.85-1.17); PROTIME 22.3 SECONDS (11.6-15.0)
--- NOTE | 2017-02-07 07:35 | NUR ---
PATIENT SITTING UP IN BED. PATIENT IS AWAKE, ALERT, AND ORIENTED X4. NO COMPLAINTS OF PAIN AT PRESENT TIME. PATIENT DENIES ANY NEEDS AT PRESENT TIME. CALL LIGHT IN PATIENT'S REACH. PATIENT STATES SHE IS JUST WAITING FOR HER BREAKFAST. WILL MONITOR PATIENT.
--- NOTE | 2017-02-07 08:14 | NUR ---
PATIENT SITTING UP IN BED AND EATING HER BREAKFAST. NO COMPLAINTS OF PAIN AT PRESENT TIME. ASSESSMENT COMPLETED. SEE FLOWSHEET FOR ANY DETAILS. SALINE LOCK PATENT WITHOUT ANY S/S OF INFECTION IN PATIENT'S RIGHT FOREARM. PATIENT AMBULATES IN HER ROOM WITH A CANE. SCHEDULED MORNING MEDICATIONS GIVEN TO PATIENT. PATIENT TOLERATED WELL WITH WATER. PATIENT DENIES ANY NEEDS AT PRESENT TIME. CALL LIGHT IN PATIENT'S REACH. WILL MONITOR PATIENT.
[2017-02-07 08:25] VITALS: BP 138/52
--- NOTE | 2017-02-07 12:15 | NUR ---
PATIENT SITTING UP IN THE CHAIR AND EATING HER LUNCH. NO S/S OF DISTRESS NOTED. PATIENT DENIES ANY NEEDS AT PRESENT TIME. NO COMPLAINTS OF PAIN. CALL LIGHT IN PATIENT'S REACH. WILL MONITOR PATIENT.
[2017-02-07 12:32] VITALS: BP 154/51
[2017-02-07] MEDS ORDERED: JANTOVEN5 MG PO (15:10)
--- NOTE | 2017-02-07 16:16 | NUR ---
PATIENT TO BE DISCHARGED HOME TODAY. PATIENT SITING UP IN A CHAIR. FAMILY IN THE ROOM. PATIENT'S SALINE LOCK DC'D WITH THE CATHETER TIP STILL INTACT. BANDAID APPLIED AND PATIENT TOLERATED WELL. PATIENT IS DRESSED AND AWAITING HER DISCHARGE PAPERS.
--- NOTE | 2017-02-07 16:28 | NUR ---
PATIENT SITTING UP IN THE CHAIR. DISCHARGE INSTRUCTIONS VERBALIZED TO PATIENT. PATIENT VERBALIZED UNDERSTANDING AND SIGNED DISCHARGE SHEETS. PATIENT'S DAUGHTER HERE TO DRIVE PATIENT HOME. PATIENT TRANSFERRED VIA WHEELCHAIR TO THE CAR.
--- NOTE | 2017-02-09 08:37 | NUR ---
LATE ENTRY- CM FOLLOW UP WITH PATIENTS DAUGHTER (ANTONIO MILLAN) REGARDING HOME HEALTH FOR PATIENT. PATIENT WAS DISCHARGED OVER THE WEEKEND AND HAD SIGNED THE [employer] FORM FOR [facility] BUT WAS NOT SET UP. PATIENTS DAUGHTER STATED SHE IS DOING FINE AND THEY DO NOT WANT HOME HEALTH. CM STATED IF THEY CHANGE THEIR MIND TO CALL PATIENTS PCP.
--- NOTE | 2017-02-13 10:19 | EC ---
PATIENT:PHAN QUEZADA DATE OF SERVICE: 01/30/17 SEX: F MEDICAL RECORD: [id number] DATE OF : 31 LOCATION:D.[facility] AGE OF PATIENT: 81 ADMISSION DATE: 01/31/17 REFERRING PHYSICIAN: INTERPRETING PHYSICIAN: ROYCE MATTA MD ECHOCARDIOGRAM REPORT ECHO CHARGES 4 ECHO COMPLETE CLINICAL DIAGNOSIS: PULMONARY EMBOLUS ECHOCARDIOGRAPHIC MEASUREMENTS (adult normal given) AC root (d.<3.7cm) 3.2 LV Septum d (<1.2 cm> 1.1 Valve Excursion 1.8 LV Septum (systole) 1.8 Left Atria (s.<4.0cm> 4.6 LVPW d(<1.2cm) 1.1 RV (d.<2.3cm) 3.0 LVPW (sytole) 1.8 LV diastole(<5.6CM) 5.3 MV E-F(>70mm/sec) LV systole 2.9 LVOT Diameter 1.9 MV exc.(>10mm) Est.ejection fraction (50-75%) Pericardial Effusion N DOPPLER: LVIT A 142 E 108 LA RVSP 31.3 LVOT 127 AOP1/2T Asc. Ao 159 RVOT 81.0 RA PA 110 AV Gradient Peak 10.1 AV Mean 5.0 AV Area 2.2 MV Gradient Peak 8.3 MV Mean 2.7 MV Area COMMENTS: Shortage Worker: Tra NIXONOE Insulation Board Back Tender:1 Dr. Matta TAPE# PACS DATE OF SERVICE: 01/30/2017 Echocardiogram FINDINGS: 1. Left ventricular chamber size is within normal limits. Left ventricular systolic function is normal. Overall ejection fraction estimated at 55%. 2. Left atrium is enlarged at 4.6 cm. Right atrium and right ventricular chamber sizes are as well moderately dilated. 3. Valvular structures have normal structure and motion. ECHOCARDIOGRAM REPORT [id number] PHAN QUEZADA 4. Doppler interrogation reveals [id number] mitral regurgitation, mild tricuspid regurgitation, no other valvular insufficiency or stenosis. Pulmonary systolic pressure is normal estimated at 31 mmHg. 5. No evidence of pericardial effusion or left ventricular thrombus. TRANSINT:[id number] Voice Confirmation ID: [id number] DOCUMENT ID: [id number] ROYCE MATTA MD at 1019 CC: [id number] DICTATION DATE: 01/31/1734 FIRE MANAGEMENT TECHNICIAN: 01/31/17 0949 DIS IN 02/07/17 [facility] [address] [id number]
== END 2017-02-07 16:28 | disposition home or self-care (01) | DRG 299 ==
LOC: D.CT 10:38 → D.MS 10:38 → D.CT 11:00 → D.MS 12:02 → D.CT 01-31 12:12 → D.MS 01-31 12:13
PROVIDERS: Internal Medicine Pulmonary Disease; ADMIT Family Medicine
DX: I82.442 Acute embolism and thrombosis of left tibial vein (principal); I26.99 Other pulmonary embolism without acute cor pulmonale; J98.11 Atelectasis; K44.9 Diaphragmatic hernia without obstruction or gangrene; I25.10 Atherosclerotic heart disease of native coronary artery without angina pectoris; Z95.5 Presence of coronary angioplasty implant and graft; D50.9 Iron deficiency anemia, unspecified; I08.1 Rheumatic disorders of both mitral and tricuspid valves; E11.9 Type 2 diabetes mellitus without complications; I10 Essential (primary) hypertension; E78.5 Hyperlipidemia, unspecified; I48.91 Unspecified atrial fibrillation; E03.9 Hypothyroidism, unspecified; Z95.0 Presence of cardiac pacemaker; G47.33 Obstructive sleep apnea (adult) (pediatric)

== ENCOUNTER 2018-09-14 10:45 | Outpatient (CLI) | payer MEDICARE, OTHER ==
[~2018-09-14] VITALS: Ht 177.8 cm; Wt 62.7 kg
--- NOTE | ~2018-09-14 | OP ---
PATIENT NAME: PHAN QUEZADA MEDICAL RECORD: [id number] :31 LOCATION:D.CAT ADMISSION DATE: SURGEON: EVI GUTIERREZ MD DATE OF OPERATION: 09/14/2018 PREOPERATIVE DIAGNOSES: 1. End-of-life pacemaker generator. 2. Sick sinus syndrome. 3. Paroxysmal atrial fibrillation. 4. Hypertension. 5. Hyperlipidemia. 6. Chronic Coumadin use. POSTOPERATIVE DIAGNOSES: 1. End-of-life pacemaker generator. 2. Sick sinus syndrome. 3. Paroxysmal atrial fibrillation. 4. Hypertension. 5. Hyperlipidemia. 6. Chronic Coumadin use. PROCEDURE: Left subclavian vein dual-lead pacemaker generator exchange. SURGEON: Evi Gutierrez MD REPORT OF PROCEDURE: The patient's left chest was prepped and draped in sterile fashion. A total of 20 mL of 1% lidocaine with epinephrine was infused into the surrounding tissues. A skin incision was made overlying the indwelling pacemaker. We were able to eviscerate the pacemaker through the wound. The 2 leads were detached from the pacemaker generator and a new generator was affixed. This was placed into the subcutaneous pouch and sutured down with a 0 Ti-Cron. The subcutaneous tissues were irrigated out and then reapproximated with interrupted 3-0 Vicryl and the skin was closed with running subcutaneous 5-0 Monocryl. COMPLICATIONS: None. CONDITION: Stable. ANESTHESIA: Local MAC. BLOOD LOSS: Minimal. TRANSINT:[id number] Voice Confirmation ID: [id number] DOCUMENT ID: [id number] EVI GUTIERREZ MD at 1219 CC: ROYCE VAZ [id number] DICTATION DATE: 09/14/18 1313 CARD SELLER: 09/14/18 1320 DEP CLI 09/14/18 [place] [id number]
--- NOTE | ~2018-09-14 | HEMODYNAMI ---
PATIENT:PHAN QUEZADA MEDICAL RECORD: [id number] : 31 LOCATION:[facility] ADMISSION DATE: 09/14/18 Generatedon:09/14/201813:12 Patient name: PHAN QUEZADA Patient #: [id number] SSN: : 1935 Date of study: 09/14/2018 Page: Of Hemodynamic Procedure Report Patient Data Patient Demographics Procedure consent was obtained First Name: PHAN Gender: Female Last Name: DAMIEN : 1935 [facility] Initial: SHELBY Age: 82 year(s) Patient #: [id number] Race: Additional ID: [id number] Contact details [address]: [address] [place] [address] State: [place] City: [place] Zip code: [address] Past Medical History Allergies Allergen Reaction Date Comments Reported Sulfa drugs 09/14/2018 Admission Admission Data Admission Date: 09/14/2018 Admission Time: 10:45 Procedure Procedure Types Cath Procedure Diagnostic Procedure PPM/ICD Permanent Pacer Generator Exg. Procedure Description Procedure Date Procedure Date: 09/14/2018 Procedure Start Time: 12:57 Procedure Staff Name Function Karen Emery RT Scrub Danisha Perry RT Monitor Christiano Rolon MD Assisting physician Chan Bruce RN Nurse Onofre Matta MD Performing Physician Procedure Data Cath Procedure Estimated blood loss: 5 ml Procedure Complications No complications Procedure Medications Medication Administration Route Dosage Lidocaine 1% added to field 20 Ancef (1Gm/50ml NS) I.V.P.B 1 g Ancef Irrigation Topical 1 g (1gm/500ml NS) Versed I.V. 1 mg Fentanyl I.V. 50 mcg Versed I.V. 1 mg Fentanyl I.V. 50 mcg Hemodynamics Rest Heart Rate: 65 (bpm) Snapshots Pre Cath Intra NCS Post Cath Vital Signs Time Heart Resp SPO2 etCO2 NIBP (mmHg) Rhythm Pain Sedation Rate (ipm) (%) (mmHg) Status Level (bpm) 12:37:41 66 14 100 0 179/74(145) NSR 0 (11) 10(A) , No pain 12:42:24 64 16 100 0 170/73(137) NSR 0 (11) 10(A) , No pain 12:47:02 69 17 100 0 168/75(137) NSR 0 (11) 10(A) , No pain 12:51:39 64 18 100 0 177/77(144) NSR 0 (11) 10(A) , No pain 12:56:19 65 13 100 0 177/74(146) NSR 0 (11) 10(A) , No pain 13:00:47 59 14 94 0 126/55(104) NSR 0 (11) 9(A) , No pain 13:05:10 59 13 95 0 129/56(99) NSR 0 (11) 10(A) , No pain 13:09:34 59 10 96 0 132/63(104) NSR 0 (11) 10(A) , No pain Medications Time Medication Route Dose Verified Delivered Reason Notes Effecti veness by by 12:35:59 Lidocaine added 20ml Christiano Henryian for local 1% to vial Brenda Rolon MD anesthetic field 12:36:08 Ancef I.V.P.B 1 g [employer] Per (1Gm/50ml Brenda Bruce RN physician NS) 12:36:18 Ancef Topical 1 g [employer] used for Irrigation Brenda Bruce medical records field technician (1gm/500ml NS) 12:55:40 Versed I.V. 1 mg [employer] for Brenda Bruce RN sedation 12:55:46 Fentanyl I.V. 50 [place] [facility] [place] Bruce RN sedation 13:00:50 Versed I.V. 1 mg [employer] for Brenda Bruce RN sedation 13:00:54 Fentanyl I.V. 50 [place] [facility] [place]da Bruce RN sedation Procedure Log Time Note 12:06:11 Time tracking: Regular hours (M-F 7:00 - 5:00) 12:06:16 Plan of Care:Hemodynamics will remain stable., Cardiac rhythm will remain stable., Comfort level will be maintained., Respiratory function will remain adequate., Patient/ family verbilizes understanding of procedure., Procedure tolerated without complication., Recovers from procedure without complications.. 12:20:33 Danisha Counts RT(R) sent for patient. Start room use. 12:26:36 Patient received from Pre/Post Procedure Room to CCL 3 Alert and oriented. Tansferred to table in Supine position. 12:26:38 Warm blankets applied, and russel hugger turned on for patient comfort. 12:26:38 Correct patient and procedure confirmed by team. 12:26:39 Signed procedure consent form obtained from patient. 12:26:40 ECG and BP/O2 sat monitors applied to patient. 12::41 Full Disclosure recording started 12:35:59 Lidocaine 1% 20ml vial added to field was administered by Christiano Rolon MD; for local anesthetic; 12:36:08 Ancef (1Gm/50ml NS) 1 g I.V.P.B was administered by Chan Bruce RN; Per physician; 12:36:12 Vital chart was started 12:36:16 Rhythm: paced 12:36:18 Baseline sample Acquired. 12:36:18 Ancef Irrigation (1gm/500ml NS) 1 g Topical was administered by Chan Bruce RN; used for procedure; 12:37:10 H&P Date Dictated: 09/06/2018 Within 30 days and on chart., H&P Addendum completed by physician on day of procedure. (MUST COMPLETE FOR ALL OUTPATIENTS). 12:37:12 Pre-procedure instructions explained to patient. 12:37:13 Pre-op teaching completed and patient verbalized understanding. 12:37:15 Family in waiting room. 12:38:48 Patient NPO since Midnight. 12:38:55 Patient allergic to Sulfa drugs 12:38:57 Is the patient allergic to Iodine/contrast media? No. 12:38:59 Is patient on blood thinner?Yes 12:39:00 Patient diabetic? Yes. 12:39:04 If diabetic: On Metformin? Unknown 12:39:07 Previous problem with sedation/anesthesia? No ? 12:39:08 Snore? Yes 12:39:09 Sleep apnea? No 12:39:10 Deviated septum? No 12:39:11 Opens mouth fully? Yes 12:39:12 Sticks out tongue? Yes 12:39:14 Airway obstruction? No ? 12:39:19 Dentures? No ? 12:39:39 COUMADIN LAST DOSE 09/09/18 12:39:44 Patient pain scale 0/10 ?. 12:39:51 IV patent on arrival in left forearm with 0.9% NaCl at [facility]. 12:39:53 Lab results completed and on chart. 12:40:03 Left chest area was prepped with chlora-prep and draped in sterile fashion 12:40:04 Alarms reviewed by R. N. 12:40:04 Sharps counted by scrub and verified by R.N. 12:42:29 Use device set BRENDA PPM 12:42:33 2-0 Ticron Multipack ([id number]) opened to sterile field. 12:42:33 3-0 Vicryl Single Pack [id number] opened to sterile field. 12:42:35 5-0 Monocryl PS2 [id number] opened to sterile field. 12:42:35 Cautery Tip Mechanical Shop Laborer opened to sterile field. 12:42:36 Cautery Pushbutton Pencil opened to sterile field. 12:42:36 Mepilex Dressing ([id number]) opened to sterile field. 12:42:48 Medtronic technical sales representatives TIFFANY OLIVEROS present for procedure. 12:43:01 Pre sharps counted by scrub and verified by RN: Sutures: 7; Sponges: 5; Stick needles: 0; Skin needles: 2; Blade: 1; Cautery: 1 12:43:05 Grounding pad site Left thigh. 12:43:07 Grounding pad site free from injury. 12:48:58 Physician paged 12:54:46 --------ALL STOP TIME OUT------ 12:54:46 Final Timeout: patient, procedure, and site verified with staff and physician. All members of the team are in agreement. 12:54:56 Left chest site verified by team. 12:55:04 Physical assessment completed. ASA score P 2 - A patient with mild systemic disease as per Christiano Rolon MD. 12:55:17 Sedation plan: IV Moderate Sedation Medication:Versed, Fentanyl 12:55:40 Versed 1 mg I.V. was administered by Chan Bruce RN; for sedation; 12:55:46 Fentanyl 50 mcg I.V. was administered by Chan Bruce RN; for sedation; 12:57:35 Lidocaine 1% was administered to left subclavicular area by Christiano Rolon MD . 12:58:46 Incision made to left subclavicular area. 13:00:02 Generator pocket made/opened. 13:00:09 PPM Dual was removed.. 13:00:50 Versed 1 mg I.V. was administered by Chan Bruce RN; for sedation; 13:00:54 Fentanyl 50 mcg I.V. was administered by Chan Bruce RN; for sedation; 13:01:57 3Jama MRI PPM Dual Generator [id number] opened to sterile field. 13:04:51 PPM Dual was attached to lead(s) and inserted into pocket. 13:05:06 Subcutaneous closure was completed with 3-0 vicryl. 13:05:15 Skin closure was completed with 5-0 monocryl. 13:08:39 Skin closure was completed with 5-0 monocryl. 13:08:44 Lt Chest incision was dressed with Mepilex dressing. 13:08:51 Procedure ended.(Physican Out) 13:09:29 Sharps counted by scrub and verified by R.N. 13:09:41 Post sharps counted by scrub and verified by RN: Sutures: 7; Sponges: 5; Stick needles: 0; Skin needles: 2; Blade: 1; Cautery: 1 13:10:08 Insertion/operative site no bleeding no hematoma. 13:10:19 Post Chest area:stable, clean and dry 13:10:23 Post-procedure physical assessment completed. ASA score P 2 - A patient with mild systemic disease as per Christiano Rolon MD. 13:10:29 Post procedure rhythm: paced 13:10:42 Estimated blood loss: 5 ml 13:10:44 Post procedure instruction explained to patient.Patient verbalizes understanding. 13:10:45 Patient needs reinforcement of post procedure teaching. 13:10:57 Procedure Complication : No complications 13:10:59 See physician's report for complete and final results. 13:11:27 Procedure and supply charges have been captured, reviewed, submitted and are correct. 13:11:35 Report given to Pre/Post Procedure Room. 13:11:41 Patient transfered to Pre/Post Procedure Room with Stretcher. 13:11:48 End room use (Document Last) 13:12:02 Vital chart was stopped Device Usage Item Name Manufacture Quantity Catalog Hospital Part Current Minimal Lot# / Number Charge Number Stock Stock Serial# Code 2-0 Ticron Ethicon 1 [id number] 5 Multipack ([id number]) 3-0 Vicryl Ethicon 1 [id number] [id number] 5 Single Pack [id number] 5-0 Monocryl Ethicon 1 [id number] [id number] 5 PS2 Y495G Cautery Tip Microtek 1 [id number] [id number] [id number] 5 [employer] Cautery Microtek 1 [id number] 03727 [id number] [address] [facility] Pencil Mepilex Cardinal 1 [id number] [id number] 5 [facility] ([id number]) Medtronic Medtronic 1 [id number] 5 Advisa MRI PPM Dual Generator [id number] Signature Audit [place] Stage Time Signature Unsigned Intra-Procedure 09/14/2018 Danisha 1:11:59 PM Counts RT(R) Signatures Monitor : Danisha Signature : Counts RT Date : Time : [address] [address] [place] [address]
[~2018-09-14 10:45] MED LIST changes: +JANTOVEN5 MG PO; +TOPROL XL25 MG PO
[2018-09-14] MEDS ORDERED: PRINIVIL20 MG PO (11:11)
[2018-09-14 11:28] VITALS: BP 130/70; Ht 177.8 cm; Wt 62.7 kg
[2018-09-14 11:31] LABS: HEMATOCRIT 35.2 % (36.0-48.0); HEMOGLOBIN 11.6 g/dL (12-16); MCH 32.5 pg (26.0-34.0); MCV 98.6 fL (80.0-100.0); RBC 3.57 10x6/uL (4.00-5.40); RDW 13.3 % (11.5-14.5); WBC 5.8 10x3/uL (4.8-10.8)
[2018-09-14 11:51] LABS: CALCIUM 10.5 mg/dL (8.5-10.1); CARBON DIOXIDE 26.1 mmol/L (21.0-32.0); CREATININE - SERUM 1.2 mg/dL (0.6-1.3); POTASSIUM - SERUM 4.1 mmol/L (3.5-5.1)
[2018-09-14 12:17] LABS: APTT 30.5 SECONDS (22.8-39.4); INR 1.2 (0.85-1.17); PROTIME 14.7 SECONDS (11.6-15.0)
[2018-09-14] MEDS ORDERED: HYDROCODON-ACE1 EAC7 PO (13:11)
== END 2018-09-14 14:35 | disposition home or self-care (01) ==
LOC: D.CATH 10:45
PROVIDERS: Internal Medicine Interventional Cardiology
DX: Z45.010 Encounter for checking and testing of cardiac pacemaker pulse generator [battery] (principal); I49.5 Sick sinus syndrome; I48.0 Paroxysmal atrial fibrillation; Z79.01 Long term (current) use of anticoagulants; I10 Essential (primary) hypertension; E78.5 Hyperlipidemia, unspecified; Z01.812 Encounter for preprocedural laboratory examination

== ENCOUNTER 2020-04-01 22:26 | Observation (INO) | payer MEDICARE, OTHER ==
[~2020-04-01] VITALS: Ht 177.8 cm; Wt 55.3 kg
[~2020-04-01 22:26] MED LIST changes: +HYDROCODON-ACE1 EAC7 PO; +LEVOTHYROXINE50 MCG PO; -LEVOTHYROXINE75 MCG PO; +PRINIVIL20 MG PO
[2020-04-01] MEDS ORDERED: ULTRAM50 MG PO (22:35)
[2020-04-01 22:47] LABS: BASOPHILS 0.1 % (0-2); EOSINOPHILS 0.6 % (0-7); HEMATOCRIT 33.3 % (36.0-48.0); HEMOGLOBIN 10.6 g/dL (12-16); IMMATURE GRANULOCYTES 0.1 % (0-5); LYMPHOCYTES 11.8 % (15-50); MCH 31.7 pg (26.0-34.0); MCHC 31.8 g/dL (31.0-37.0); MCV 99.7 fL (80.0-100.0); MEAN PLATELET VOLUME 9.5 fL (7.4-10.4); MONOCYTES 5.5 % (2-11); NEUTROPHILS 81.9 % (40-80); PLATELET COUNT 202 10x3/uL (130-400); RBC 3.34 10x6/uL (4.00-5.40); RDW 12.8 % (11.5-14.5); WBC 8.8 10x3/uL (4.8-10.8)
[2020-04-01 22:55] LABS: APTT 39.3 SECONDS (22.8-39.4); INR 3.47 (0.85-1.17); PROTIME 34.2 SECONDS (11.6-15.0)
[2020-04-01 22:57] LABS: CALC OSMOLALITY 276 mosm/kg (275-300); CALCIUM 10.1 mg/dL (8.5-10.1); CARBON DIOXIDE 28.3 mmol/L (21.0-32.0); CHLORIDE - SERUM 99 mmol/L (98-107); CREATININE - SERUM 1.4 mg/dL (0.6-1.3); POTASSIUM - SERUM 3.7 mmol/L (3.5-5.1); SODIUM 133 mmol/L (136-145); UREA NITROGEN 33 mg/dL (7-18); eGFR NON AFRICAN AMERICAN 38 mL/min (90-120)
[2020-04-01 23:05] LABS: GLUCOSE 173 mg/dL (74-106)
--- NOTE | 2020-04-01 23:08 | NUR ---
PT CURRENTLY IN RADIOLOGY.
[2020-04-01 23:10] LABS: ALBUMIN 4.3 g/dL (3.4-5.0); ALKALINE PHOSPHATASE 67 U/L (30-120); ALT (SGPT) 28 U/L (10-68); BILIRUBIN - TOTAL 0.73 mg/dL (0.2-1.3); CREATINE KINASE 169 UL (21-215); LIPASE 91 U/L (73-393); MAGNESIUM - SERUM 1.8 mg/dL (1.8-2.4); PRO BNP 1653 pg/mL (0-450); PROTEIN - SERUM 7.9 g/dL (6.4-8.2); THYROID STIMULATING HORMONE 2.89 uIU/mL (0.36-3.74)
[2020-04-01 23:11] LABS: TROPONIN-I < 0.017 ng/mL (0.000-0.060)
[2020-04-01 23:35] VITALS: BP 223/116
--- NOTE | 2020-04-01 23:35 | NUR ---
B/P ELEVATED. DR PAUL MADE AWARE. PT C/O PAIN TO LEFT HIP AND A HEADACHE. FAMILY IN ROOM.
[2020-04-01 23:53] LABS: BILIRUBIN NEGATIVE (NEGATIVE); GLUCOSE 100 mg/dL (NEGATIVE); KETONE NEGATIVE (NEGATIVE); NITRITE NEGATIVE (NEGATIVE); UROBILINOGEN NORMAL (NORMAL)
[2020-04-01 23:55] LABS: BACTERIA NONE SEEN /hpf (NEGATIVE); EPITHELIAL CELLS 0-5 /hpf (0-5); RED CELLS - URINE 0-5 /hpf (0-5); WHITE CELLS - URINE NSEEN /hpf (NEGATIVE)
[2020-04-02] VITALS (7 sets, daily range): BP systolic 114–159; BP diastolic 56–82; Ht 177.8 cm; Wt 55.3 kg
[2020-04-02] MEDS ORDERED: BETAPACE 80 MG80 MG PO (01:26)
[2020-04-02 05:26] LABS: BASOPHILS 0.1 % (0-2); EOSINOPHILS 0 % (0-7); HEMATOCRIT 32.6 % (36.0-48.0); HEMOGLOBIN 10.5 g/dL (12-16); IMMATURE GRANULOCYTES 0.1 % (0-5); LYMPHOCYTES 12.4 % (15-50); MCHC 32.2 g/dL (31.0-37.0); MCV 99.4 fL (80.0-100.0); MONOCYTES 6.2 % (2-11); NEUTROPHILS 81.2 % (40-80); PLATELET COUNT 222 10x3/uL (130-400); RBC 3.28 10x6/uL (4.00-5.40); WBC 7.8 10x3/uL (4.8-10.8)
[2020-04-02 05:40] LABS: INR 3.29 (0.85-1.17); PROTIME 32.9 SECONDS (11.6-15.0)
[2020-04-02 06:04] LABS: ALKALINE PHOSPHATASE 50 U/L (30-120); ALT (SGPT) 33 U/L (10-68); CALC OSMOLALITY 275 mosm/kg (275-300); CALCIUM 9.9 mg/dL (8.5-10.1); CARBON DIOXIDE 27.6 mmol/L (21.0-32.0); CHLORIDE - SERUM 99 mmol/L (98-107); CREATININE - SERUM 1.3 mg/dL (0.6-1.3); GLUCOSE 140 mg/dL (74-106); POTASSIUM - SERUM 3.8 mmol/L (3.5-5.1); PRO BNP 4061 pg/mL (0-450); PROTEIN - SERUM 7.7 g/dL (6.4-8.2); SODIUM 134 mmol/L (136-145); UREA NITROGEN 29 mg/dL (7-18); eGFR NON AFRICAN AMERICAN 41 mL/min (90-120)
[2020-04-02 06:06] LABS: TROPONIN-I < 0.017 ng/mL (0.000-0.060)
--- NOTE | 2020-04-02 08:35 | NUR ---
ASKED DR. UNDERWOOD ABOUT CHANGING PT OFF A CLEAR LIQUID DIET. HE STATES HE IS SEEING PT NEXT AND WILL TAKE A LOOK AT IT. I VERBALIZED UNDERSTANDING.
--- NOTE | 2020-04-02 10:05 | NUR ---
PT UP WALKING WITH P.T. IN HALLWAY.
--- NOTE | 2020-04-02 10:25 | NUR ---
I have reviewed this patient and I concur with the Shift Assessment completed by the Licensed Practical Nurse today this shift.
--- NOTE | 2020-04-02 10:43 | NUR ---
PT LYING IN BED. RESTING QUIETLY. CHEST RISING AND FALLING. BED LOW. CL IN REACH. WILL CONTINUE WITH POC.
--- NOTE | 2020-04-02 16:28 | NUR ---
PT'S DIET HAS NOT BEEN CHANGED NOR A ROUNDING NOTE FROM THIS AM HAS BEEN PLACED. CALLED OFFICE AND SPOKE WTIH DR. UNDERWOOD'S NURSE [place] AND STATED PT'S FAMILY IS WONDERING AND HAS ASKED SEVERAL TIMES FOR WHAT HIS NOTE HAS SAID AND ALSO WANTS KNOW ABOUT DIET. SHE STATES SHE WILL SPEAK WITH HIM. I VERBALIZED UNDERSTANDING.
--- NOTE | 2020-04-02 16:43 | MORECARE ---
CASE MANAGEMENT DISCHARGE SUMMARY PATIENT: PHAN QUEZADA UNIT: [id number] ADM DATE: 04/01/20 AGE: 84 : 33 SEX: F ROOM/BED: D.2230 AUTHOR: RONNY DANGELO PHYSICIAN: REFERRING PHYSICIAN: JEANNIE UNDERWOOD MD DATE OF SERVICE: 04/02/20 Discharge Plan Patient Name: PHAN QUEZADA Facility: [facility]:[place] : 1935 Planned Disposition: Anticipated Discharge Date: Discharge Date: Expected LOS: Initial Reviewer: [email or web address] Initial Review Date: 04/02/2020 Generated: 04/02/20 5:42 pm Coverage Notice Reviewer: [email or web address] Tad Sandoval Notice Issued Date-Time: 04/02/2020 16:00 Notice Type: Medicare Outpatient Observation Notice Notice Delivered To: Patient Relationship to Patient: Automobile Dealer Name: Delivery Method: HAND - Hand Delivered Cat Days: Prior Verbal Notification: Recipient Understood Notice: Yes Recipient Signature: Yes Med Rec Note Co-signed by Attending: Coverage Notice Comment: Patient Name: PHAN QUEZADA Page [phone] at 1643 All edits/amendments must be made on the electronic document DICTATION DATE: 04/02/201641 BAKED AND GRAPHITE INSPECTOR: GINA 04/02/201641 RPT#: [id number] DC DATE: STATUS: ADM IN [facility] [address] [place] [address] END OF REPORT
--- NOTE | 2020-04-02 16:56 | NUR ---
SCD'S PLACED ON PT'S LEGS BILATERALLY.
--- NOTE | 2020-04-02 16:58 | NUR ---
Rehab Note- Acute Inpatient Rehab prescreen order received. THe patient is a new admit and continues to have an acute work up. Will continue to follow at this time. Thank you for this referral! Heidy Caicedo RN Clinical Liaison, [facility] Rehab
[2020-04-03 00:51] VITALS: BP 143/70
[2020-04-03 05:28] LABS: BASOPHILS 0.1 % (0-2); EOSINOPHILS 0.3 % (0-7); HEMATOCRIT 34.2 % (36.0-48.0); HEMOGLOBIN 10.9 g/dL (12-16); IMMATURE GRANULOCYTES 0.1 % (0-5); LYMPHOCYTES 21.3 % (15-50); MCHC 31.9 g/dL (31.0-37.0); MCV 100.3 fL (80.0-100.0); MEAN PLATELET VOLUME 10.1 fL (7.4-10.4); MONOCYTES 12.3 % (2-11); NEUTROPHILS 65.9 % (40-80); PLATELET COUNT 226 10x3/uL (130-400); RBC 3.41 10x6/uL (4.00-5.40); RDW 13.4 % (11.5-14.5); WBC 7.7 10x3/uL (4.8-10.8)
[2020-04-03 06:04] LABS: ANION GAP 12.1 mmol/L (8-16); CALCIUM 9.6 mg/dL (8.5-10.1); CARBON DIOXIDE 27.6 mmol/L (21.0-32.0); CREATININE - SERUM 1.2 mg/dL (0.6-1.3); POTASSIUM - SERUM 3.7 mmol/L (3.5-5.1)
[2020-04-03 06:13] LABS: INR 3.78 (0.85-1.17); PROTIME 36.6 SECONDS (11.6-15.0)
[2020-04-03 06:16] VITALS: BP 142/77
--- NOTE | 2020-04-03 07:53 | HP ---
PATIENT: PHAN QUEZADA MEDICAL RECORD: [id number] ACCOUNT: [id number] LOCATION:D.MS [facility] : 31 ADMISSION DATE: 04/01/20 PCP: JEANNIE UNDERWOOD MD HISTORY AND PHYSICAL EXAMINATION HISTORY OF PRESENT ILLNESS: This is an 84-year-old female with an apparent fall. This was unwitnessed. She cannot remember anything about it. She was brought to the ED and on presentation there was awake and alert, pleasant and cooperative. She does not remember if she tripped or fell or lost consciousness. She has been having some memory issues for the last 6-8 months. She has a large hematoma on the left side of the forehead. She is on Coumadin for atrial fibrillation/sick sinus syndrome. Her blood pressure was very high when she first arrived to the ED. The patient was evaluated, had multiple CT scans including the head, facial bones, cervical spine, lumbar spine, and pelvis. There were no acute fractures seen. Chest x-ray was stable. Her INR on arrival was 3.47. Her urine appeared clear. She was admitted for close observation with a fall, on blood thinners. PAST MEDICAL HISTORY: Diabetes, hypothyroidism, osteoarthritis, hyperlipidemia, right carotid bruit, atrial fibrillation, sick sinus syndrome, history of DVT and PE in 2017. History of coronary artery disease and more recently, she is experiencing worsening memory loss. PAST SURGICAL HISTORY: Hysterectomy, partial thyroidectomy, pacemaker placement, ORIF of hip fracture in 2012. HOME MEDICATIONS: Include pravastatin 20 mg once a day, levothyroxine 50 mcg once a day, warfarin daily, iron sulfate daily, amlodipine 10 mg a day, and metoprolol tartrate 25 mg twice a day. ALLERGIES: SULFA. HABITS: No tobacco, alcohol, or drugs. SOCIAL HISTORY: She is , retired. A grandson lives with her but he works. FAMILY HISTORY: Noncontributory. REVIEW OF SYSTEMS: GENERAL: No major weight changes. HEENT: No particular sinus or allergy problems. RESPIRATORY: No history of COPD or emphysema. CARDIAC: She has a history of atrial fibrillation, sick sinus syndrome, and coronary artery disease. She has a pacemaker placed. GASTROINTESTINAL: No significant heartburn, diarrhea, or constipation. GENITOURINARY: No significant problems there. MUSCULOSKELETAL: She has osteoarthritis. NEUROLOGIC: She is having worsening decline in her mental status. PSYCHIATRY: Denies depression or melancholia. PHYSICAL EXAMINATION: VITAL SIGNS: Temperature 98.8, pulse 73, respirations 16, blood pressure 125/63, and O2 sat 97%. GENERAL: She is awake and alert. She does not appear in acute distress. HISTORY AND PHYSICAL [id number] [place] HEENT: She has hematoma on the left forehead, some scratches across the bridge of the nose where her glasses where when she fell. Otherwise HEENT is unremarkable. NECK: Supple. HEART: Regular rate and rhythm without murmur. LUNGS: Clear. ABDOMEN: Soft, flat, nontender. EXTREMITIES: No edema. NEUROLOGICAL: Cranial nerves II-XII are grossly intact. Mental status, she is having cognitive decline and admitted as much to me when I saw her almost 6 months ago. LABORATORY DATA: CBC with a white count of 8800, hemoglobin 10.6, hematocrit 33.6. Basic metabolic panel: Sodium 133, potassium 3.7, chloride 99, CO2 28.3, BUN 33, creatinine 1.4, glucose 173, and calcium 10.1. Lactic acid normal at 0.8. Liver functions were okay. ProBNP 1653. TSH 2.89. Urinalysis is normal. INR a little high at 3.47. CT of the head shows no acute intracranial problems. She has a hematoma in the left frontal area. CT of the facial bones, no acute fracture is seen. CT of the cervical spine, nothing acute. CT of the lumbar spine, nothing acute. CT of the pelvis shows no fractures. Chest x-ray is stable. ASSESSMENT: 1. Unwitnessed fall. 2. On Coumadin for atrial fibrillation. 3. Cognitive decline. 4. Diabetes. 5. Hypertension. PLAN: We will monitor. Place her on telemetry. I have physical therapy to walk her. We will see if she needs rehabilitation. Other tests or procedures as warranted. TRANSINT:[id number] Voice Confirmation ID: [id number] DOCUMENT ID: [id number] JEANNIE UNDERWOOD MD at 0753 CC: [id number] DICTATION DATE: 04/02/202235 DIRECTOR OF MUSIC: 04/03/20 0250 [facility] IN [place] [id number] [place] [address]
[2020-04-03 08:45] VITALS: BP 131/74
[2020-04-03 12:53] VITALS: BP 110/57
--- NOTE | 2020-04-03 13:39 | NUR ---
I have reviewed this patient and I concur with the Shift Assessment completed by the Licensed Practical Nurse today this shift.
--- NOTE | 2020-04-03 15:47 | NUR ---
REHAB SCREENING Rehab has accepted this patient. All approvals are in place. She can admit to rehab when her physicians feel she is appropriate for discharge. Thank you for this referral! Gloria Bautista, RESIDENT SURGEON [facility]
--- NOTE | 2020-04-03 16:22 | NUR ---
HEMATOMA NOTED TO FOREHEAD. BRUISING AND ABRASIONS TO NOSE AND NECK. WOUND CARE IS FOLLOWING.
[2020-04-03 16:55] VITALS: BP 111/49
[2020-04-03 20:58] VITALS: BP 128/56
--- NOTE | 2020-04-03 21:41 | NUR ---
PATIENT IN BED RESTING WITH NO NEEDS , NO S/S OF DISTRESS. ORDERS TO D/C TO REHAB. REPORT CALLED TO [facility] IN REHAB. DISCHARGE COMPLTED PATIENT TRANSPORTED VIA WHEEL CHAIR WITH STAFF.
--- NOTE | 2020-04-04 09:15 | MORECARE ---
CASE MANAGEMENT DISCHARGE SUMMARY PATIENT: PHAN QUEZADA UNIT: [id number] ADM DATE: 04/01/20 AGE: 84 : 33 SEX: F ROOM/BED: D.2230 AUTHOR: RONNY DANGELO PHYSICIAN: REFERRING PHYSICIAN: JEANNIE UNDERWOOD MD DATE OF SERVICE: 04/04/20 Discharge Plan Patient Name: PHAN QUEZADA Facility: [facility]:[place] : 1935 Planned Disposition: Anticipated Discharge Date: Discharge Date: 04/03/2020 Expected LOS: Initial Reviewer: [email or web address] Initial Review Date: 04/02/2020 Generated: 04/04/20 10:14 am Coverage Notice Reviewer: [email or web address] Tad Sandoval Notice Issued Date-Time: 04/02/2020 16:00 Notice Type: Medicare Outpatient Observation Notice Notice Delivered To: Patient Relationship to Patient: Newspaper Editor Name: Delivery Method: HAND - Hand Delivered Cat Days: Prior Verbal Notification: Recipient Understood Notice: Yes Recipient Signature: Yes Med Rec Note Co-signed by Attending: Coverage Notice Comment: Last DP export: 04/02/20 3:43 pm Patient Name: PHAN QUEZADA Page [phone] at 0915 All edits/amendments must be made on the electronic document DICTATION DATE: 04/04/20913 FORMATION FRACTURING OPERATOR: DM 04/04/20913 RPT#: [id number] DC DATE:04/03/20 STATUS: DIS IN [place] [address] [place] [address] END OF REPORT
== END 2020-04-03 21:49 ==
LOC: EDBD 22:26 → D.ER 22:26 → OBSVTIME 23:20 → D.M2 23:20 → D.MS 23:20
PROVIDERS: Family Medicine; ADMIT Family Medicine; ATTEND Family Medicine
DX: S00.83XA Contusion of other part of head, initial encounter (principal); E11.9 Type 2 diabetes mellitus without complications; E03.9 Hypothyroidism, unspecified; E78.5 Hyperlipidemia, unspecified; M19.90 Unspecified osteoarthritis, unspecified site; I48.91 Unspecified atrial fibrillation; I49.5 Sick sinus syndrome; Z86.718 Personal history of other venous thrombosis and embolism; Z86.711 Personal history of pulmonary embolism; I10 Essential (primary) hypertension; R41.81 Age-related cognitive decline; Z79.01 Long term (current) use of anticoagulants; W19.XXXA Unspecified fall, initial encounter

== ENCOUNTER 2020-04-03 20:45 | Inpatient (IN) | payer MEDICARE, OTHER ==
[~2020-04-03] VITALS: Ht 177.8 cm; Wt 55.3 kg
[~2020-04-03 20:45] MED LIST changes: +BETAPACE 80 MG80 MG PO; +ULTRAM50 MG PO
[2020-04-03 21:51] VITALS: BP 103/61; BMI 17.5
--- NOTE | 2020-04-03 21:51 | NUR ---
ADMISSION ASSESSMENT AND HISTORY DONE, SEE FLOW SHEET, POC DISCUSSED WITH PT, PT VERBALIZES UNDERSTANDING
--- NOTE | 2020-04-03 22:21 | NUR ---
ADM MEDS PO PER MD ORDERS, SEE EMAR, PT REQUESTS PAIN MED, WILL ADM
--- NOTE | 2020-04-03 22:33 | NUR ---
AFTER SCANNING PAIN MED, INFORMED PT THAT I NEEDED HER TO SIGN PAPERWORK BEFORE SHE TAKES HER PAIN MED, PT VERBALIZES UNDERSTANDING
--- NOTE | 2020-04-03 22:45 | NUR ---
PT SIGNED ALL PAPERWORK REQUIRED, ADM TRAMADOL PER MD ORDERS, SEE EMAR
--- NOTE | 2020-04-03 22:55 | NUR ---
PT UP TO BR WITH ASSISTANCE VIA WC, PT VOIDED BY SELF WITH NO DIFFICULTY, PT BACK TO BED, BED IN LOW POSITION, SIDE RAILS X 2, CALL LIGHT IN REACH, BED ALARM ON AND WORKING PROPERLY
--- NOTE | 2020-04-03 23:44 | NUR ---
PT RESTING WITH EYES CLOSED, RESP QUIET, NO DISTRESS NOTED, LEFT UNDISTURBED AT THIS TIME
--- NOTE | 2020-04-04 01:45 | NUR ---
PT RESTING WITH EYES CLOSED, RESP QUIET, NO DISTRESS NOTED, LEFT UNDISTURBED AT THIS TIME, BED IN LOW POSITION, SIDE RAILS X 2, CALL LIGHT IN REACH, BED ALARM ON AND WORKING PROPERLY
--- NOTE | 2020-04-04 03:15 | NUR ---
PT CLASSIFIED ADVERTISING SUPERVISOR LIGHT, PT UP TO BR WITH ASSSITANCE VIA WC, PT VOIDED BY SELF WITH NO DIFFICULTY, PT BACK TO BED, DENIES FURTHER NEEDS, BED IN LOW POSITION, SIDE RAILS X 2, CALL LIGHT IN REACH, BED ALARM ON AND WORKING PROPERLY
--- NOTE | 2020-04-04 06:13 | NUR ---
PT RESTING WITH EYES CLOSED, AROUSES TO SOFT VERBAL STIMULATION, ADM SYNTHROID PER MD ORDERS, SEE EMAR, PT DENIES NEEDS OR PAIN AT THIS TIME, BED IN LOW POSITION, SIDE RAILS X 2, CALL LIGHT IN REACH, BED ALARM ON AND WORKING PROPERLY
[2020-04-04 08:05] LABS: INR 3.21 (0.85-1.17); PROTIME 32.3 SECONDS (11.6-15.0)
[2020-04-04 08:36] LABS: CALCIUM 9.3 mg/dL (8.5-10.1); CARBON DIOXIDE 28.6 mmol/L (21.0-32.0); CREATININE - SERUM 1.1 mg/dL (0.6-1.3); POTASSIUM - SERUM 3.6 mmol/L (3.5-5.1)
[2020-04-04 08:40] VITALS: BP 107/48
--- NOTE | 2020-04-04 08:44 | NUR ---
AWAKE AND ALERT. NO DISTRESS NOTED. RESP EVEN AND UNLABORED. CL IN REACH.
[2020-04-04 09:22] LABS: BASOPHILS 0.1 % (0-2); EOSINOPHILS 0.2 % (0-7); HEMATOCRIT 31.4 % (36.0-48.0); IMMATURE GRANULOCYTES 0.2 % (0-5); LYMPHOCYTES 12.6 % (15-50); MCH 32.1 pg (26.0-34.0); MCHC 31.8 g/dL (31.0-37.0); MCV 100.6 fL (80.0-100.0); MEAN PLATELET VOLUME 9.9 fL (7.4-10.4); MONOCYTES 11.1 % (2-11); NEUTROPHILS 75.8 % (40-80); PLATELET COUNT 241 10x3/uL (130-400); RBC 3.12 10x6/uL (4.00-5.40); RDW 13.4 % (11.5-14.5)
[2020-04-04 13:00] VITALS: Ht 177.8 cm; Wt 55.3 kg
--- NOTE | 2020-04-04 14:29 | NUR ---
PARTICIPATED IN THERAPY THIS AM. BP WAS LOW. BACK TO BED. RECHECKED BP AND IT IS WNL NOW. RESTING WO DISTRESS. CL IN REACH.
--- NOTE | 2020-04-04 15:53 | NUR ---
NO CHANGE IN ASSESSMENT. RESTING WO C/O PAIN.CL IN REACH.
--- NOTE | 2020-04-04 15:57 | NUR ---
PATIENT IS BEING MOVED TO ROOM 1119A.
--- NOTE | 2020-04-04 16:25 | NUR ---
CARE TEAM MEETING: PATIENT IS NEW TO UNIT AND WILL BE RA AT NEXT MEETING. WILL CONTINUE TO FOLLOW WITH PATIENT.
--- NOTE | 2020-04-04 19:30 | NUR ---
AWAKE AND ALERT. RESTING IN BED WITH RESPIRATIONS UNLABORED. NO ACUTE DISTRESS NOTED. CALL LIGHT IN REACH.
[2020-04-04 23:05] VITALS: BP 110/51
--- NOTE | 2020-04-05 02:05 | NUR ---
SLEEPING WITH RESPIRATIONS UNLABORED. NO DISTRESS NOTED. CALL LIGHT IN REACH.
--- NOTE | 2020-04-05 05:10 | NUR ---
QUIET HOURS. NO ACUTE CHANGES IN CONDITION THIS SHIFT. RESTING IN BED WITH NO DISTRESS NOTED.
[2020-04-05 08:00] VITALS: BP 125/46
[2020-04-05 10:49] VITALS: BP 129/52
--- NOTE | 2020-04-05 12:03 | NUR ---
PATIENT IS ADMITTED TO REHAB FROM ACUTE FLOOR. DR. UNDERWOOD IS HER PCP. DSICHARGE PLANS ARE FOR HER TO RETURN BACK TO HER HOME. WILL CONTINUE TO FOLLOW WITH PATIENT.
--- NOTE | 2020-04-05 19:19 | NUR ---
AWAKE AND ALERT. RESTING IN BED WITH RESPIRATIONS UNLABORED. HEMATOMA REMAINS ON RIGHT FOREHEAD AREA. NO NEEDS VOICED. NO DISTRESS NOTED.
[2020-04-05 21:53] VITALS: BP 114/41
--- NOTE | 2020-04-06 00:32 | NUR ---
SLEEPING WITH RESPIRATIONS UNLABORED. NO DISTRESS NOTED. CALL LIGHT IN REACH.
--- NOTE | 2020-04-06 05:13 | NUR ---
ASSISTED TO BATHROOM AND BACK TO BED. QUIET HOURS. NO ACUTE CHANGES IN CONDITION THIS SHIFT. NOW RESTING IN BED WITH NO DISTRESS NOTED.
[2020-04-06 08:00] VITALS: BP 128/47
[2020-04-06 08:28] LABS: BASOPHILS 0.3 % (0-2); EOSINOPHILS 1.4 % (0-7); HEMATOCRIT 29.4 % (36.0-48.0); HEMOGLOBIN 9.2 g/dL (12-16); IMMATURE GRANULOCYTES 0.2 % (0-5); LYMPHOCYTES 15.3 % (15-50); MCH 31.6 pg (26.0-34.0); MCHC 31.3 g/dL (31.0-37.0); MEAN PLATELET VOLUME 9.9 fL (7.4-10.4); MONOCYTES 12.1 % (2-11); NEUTROPHILS 70.7 % (40-80); PLATELET COUNT 224 10x3/uL (130-400); RBC 2.91 10x6/uL (4.00-5.40)
[2020-04-06 08:43] LABS: WBC 6.5 10x3/uL (4.8-10.8)
[2020-04-06 08:44] LABS: ANION GAP 8.7 mmol/L (8-16); CALCIUM 9.9 mg/dL (8.5-10.1); CARBON DIOXIDE 29.2 mmol/L (21.0-32.0); CREATININE - SERUM 1.3 mg/dL (0.6-1.3); POTASSIUM - SERUM 3.9 mmol/L (3.5-5.1)
[2020-04-06 08:46] LABS: INR 1.31 (0.85-1.17); PROTIME 16.2 SECONDS (11.6-15.0)
--- NOTE | 2020-04-06 08:54 | RHP ---
PATIENT: PHAN QUEZADA MEDICAL RECORD: [id number] ACCOUNT: [id number] LOCATION:[facility]1119 : 31 ADMISSION DATE: 04/03/20 REHABILITATION HISTORY AND PHYSICAL EXAMINATION POST ADMISSION PHYSICIAN EXAMINATION ADMITTING DIAGNOSIS: Muscular wasting and disuse atrophy. HISTORY OF PRESENT ILLNESS: The patient is an 84-year-old female patient of Dr. Morales. She apparently fell, but was unwitnessed. She cannot really remember anything about the fall, she was brought to the Emergency Room. She is pleasant, cooperative, alert and awake. She had a large hematoma to the left side of her forehead. Been on atrial fib/sick sinus syndrome. Her blood pressure was very high when she arrived, her initial INR was 3.47. Her UA was clear. The patient was doing well prior to this admission living on her own, was independent with a rolling walker, ambulation, and independent in ADLs. Her grandson lives with her, but was not there during the day because he works. Her current function is mod assist with ambulation 120 feet and frequent loss of balance. She is very unsteady sit to stand and requires touching orthodontist assistant. She is currently being monitored with telemetry. We will need to continue this. She is currently being monitored closely for lab values, her cognition, medication adjustments, monitoring pain control. She got decreased activity tolerance, decreased strength, proximal muscle weakness, balance deficits, decreased range of motion, gait disturbance. She has a high fall risk and self-care deficits. These are all barriers to her discharge home. She will definitely benefit from inpatient rehabilitation. COMORBIDITIES: Include atrial fib, diabetes, hypertension, osteoporosis, pacemaker, renal insufficiency, syncope and falls. PAST MEDICAL HISTORY: Significant for diabetes, hypothyroidism, osteoarthritis, hyperlipidemia, atrial fib, sick sinus, got a history of DVT, coronary artery disease. She is having some memory problems. PAST SURGICAL HISTORY: Includes hysterectomy, partial thyroidectomy, pacemaker placement and ORIF of her hip. ALLERGIES: SULFA. CURRENT MEDICATIONS: Include Synthroid she is on 50 mcg daily. She is on MiraLax 17 grams in 8 ounces of water daily. She is on tramadol 50 mg daily. She is on ferrous sulfate 325 mg b.i.d., sotalol 80 mg b.i.d., metformin 500 mg at bedtime, Pravachol 20 mg at bedtime, and Prinivil 40 mg at bedtime. HABITS: No alcohol or tobacco use. FAMILY HISTORY: Noncontributory. SOCIAL HISTORY: The patient hopes to return back home and get back to her prior level of functioning. REVIEW OF SYSTEMS: GENERAL: Does complain of weakness, fatigue. She denies cold, cough, or congestion. CARDIOVASCULAR: Denies any chest pain. HISTORY AND PHYSICAL [id number] PHAN QUEZADA PHYSICAL EXAMINATION: VITAL SIGNS: Stable. She is afebrile. GENERAL: An elderly female in no acute distress, alert upon exam. HEENT: Normocephalic. She does have noted hematoma healing to her forehead. Pupils equal, round, reactive to light. Extraocular muscles are intact. NECK: Supple. No lymphadenopathy. LUNGS: Clear in [place]. No wheezing or rales. HEART: Irregular rate and rhythm. No murmurs, rubs, or gallops. ABDOMEN: Soft, benign and nondistended. Positive bowel sounds times 4. EXTREMITIES: No clubbing, cyanosis or edema. NEUROLOGIC: She is slow to mentate. She does have some proximal muscle weakness. LABORATORY DATA: Her INR today is still noted to be 3.21. Her sodium is 134, potassium 3.6, BUN and creatinine of 27 and 1.1, and blood sugar is noted to be 131. ASSESSMENT: This is an 84-year-old female patient admitted to rehab with a working diagnosis of disuse atrophy, muscular wasting. The patient has potential to make improvement. We instituted the following multidisciplinary therapies include, but not limited to physical, occupational, respiratory, speech, nutritional services, prosthetics and orthotics. Given her complex medical conditions and risks for more complications, rehabilitation services cannot be provided at a low level of care such as [facility] facility. PLAN: 1. Admit to [facility] rehab therapy to include the following disciplines: A. Physical therapy to improve gait, all transfer skills and bed mobility to a modified independent level. B. Occupational therapy to improve activities of living. C. Case management to assist with discharge planning and placement options. D. Nutrition to assist with nutritional needs. E. Rehabilitation nursing to assist in monitoring the patient's underlying medical conditions and to assist with any type of bowel or bladder management. 2. The patient's current medication and medical care will be continued. 3. We will adjust her warfarin levels as appropriate to get her INR between 2 and 3. 4. We will see again in the a.m. TRANSINT:[id number] Voice Confirmation ID: [id number] DOCUMENT ID: [id number] SAMUEL notes whether there has been none or any medical/functional change since admission: - No change since preadmission screen. SAMUEL attests patient continues to be appropriate for IRF: - Continues to be appropriate. HISTORY AND PHYSICAL [id number] PHAN QUEZADA,TYRON KIRKLAND MD at 0854 CC: [id number] DICTATION DATE: 04/04/20899 MANAGER QUALITY: 04/04/20 09 ADM IN [place] [id number] [place] [id number]
--- NOTE | 2020-04-06 10:32 | NUR ---
LAYING DOWN IN BED. WAS WORKING WITH THERAPY AND HAD B/P FLUXUATIONS....SITTING=79/34, SUPINE TO SITTING AFTER 5 MINUTES=87/34, DGTFBZ=565/39. B/P THIS AM WAS 128/47.
--- NOTE | 2020-04-06 15:36 | NUR ---
Nutrition Follow-up: Diet: Diabetic + Glucerna TID PO intake: ~66% average x last 4 meals recorded. She states that she has a good appetite and is eating well now that she is getting real food. She likes the Glucerna and states that she has been drinking them. Last BM: 04/04/20. WT: 122# (04/04/20) Meds reviewed: metformin Labs noted: Na 134(L), BUN 44(H), GFR 41(L), Glu 119(H) Recommend continue current diet and oral nutrition supplement. RD following.
--- NOTE | 2020-04-06 15:43 | NUR ---
LAYING DOWN IN BED RESTING QUIETLY. NO S/S DISTRESS. CALL LIGHT IN REACH. SIDE RAILS UP X2.
--- NOTE | 2020-04-06 19:19 | NUR ---
AWAKE AND ALERT. RESTING IN BED WITH RESPIRATIONS UNLABORED. NO ACUTE DISTRESS NOTED. CALL LIGHT IN REACH.
[2020-04-06 19:37] VITALS: BP 120/45
--- NOTE | 2020-04-07 00:48 | NUR ---
SLEEPING WITH RESPIRATIONS UNLABORED. NO DISTRESS NOTED.
--- NOTE | 2020-04-07 05:21 | NUR ---
QUIET HOURS. NO ACUTE CHANGES IN CONDITION THIS SHIFT. RESTING IN BED WITH NO DISTRESS NOTED.
[2020-04-07 08:00] VITALS: BP 137/50
--- NOTE | 2020-04-07 10:05 | NUR ---
RESTING QUIETLY IN BED. HAS BEEN UP WITH THERAPY TOM. DID NOT HAVE ANY SUDDEN OR DRASTIC DROP IN V/S WHEN UP WALKING TODAY. STATES SHE FEELS BETTER SINCE HER MEALS ARE BETTER AND SHE FEELS LIKE EATING. FACE RESEARCH ASST TO TOUCH AND IS BRUISED. CALL LIGHT IN REACH. BED IN LOWEST POSITION. SIDE RAILS UP X2
--- NOTE | 2020-04-07 18:39 | NUR ---
RESTING QUIETLY IN BED WITH EYES CLOSED. HAD VISITOR FOR LONG TIME TODAY. SHE DENIES INCREASED PAIN TO HEAD. STILL HAS LARGE "GOOSE EGG" TO TOP OF HER FOREHEAD WITH BLOODY DRIED SCAB ON TOP. SHE HAS NOT HAD ANY ORTHOSTATIC HYPOTENSION EPISODES TODAY.
--- NOTE | 2020-04-07 19:00 | NUR ---
BEDSIDE REPORT COMPLETE. PT SITTING UP IN BED. ALERT AND ORIENTED X4. LEFT FOREHEAD HEMATOMA AND FACIAL BRUISING NOTED. CONTINUES ON 2L VIA NC. DENIES ANY NEEDS OR PAIN. NO SIGNS OF ACUTE DISTRESS NOTED. CALL LIGHT WITHIN REACH. BED ALARM ON. CPOC
[2020-04-07 21:00] VITALS: BP 133/52
--- NOTE | 2020-04-08 00:28 | NUR ---
PT LYING IN BED SUPINE. HOB ELEVATED. RESTING COMFORTABLY. RR EVEN AND UNLABORED. CALL LIGHT WITHIN REACH. FALL PRECAUTIONS IN PLACE. CPOC
--- NOTE | 2020-04-08 01:55 | NUR ---
ASSISTED PT TO RESTROOM AND BACK TO BED WITH MIN ASSIST. DENIES ANY OTHER NEEDS OR PAIN. RR EVEN AND UNLABORED. CALL LIGHT WITHIN REACH. BED ALARM ON. CPOC
--- NOTE | 2020-04-08 05:29 | NUR ---
ASSISTED PT TO RESTROOM AND BACK TO BED WITH MIN ASSIST. DENIES ANY OTHER NEEDS OR PAIN. NO SIGNS OF ACUTE DISTRESS NOTED. CALL LIGHT WITHIN REACH. BED ALARM ON. CPOC
[2020-04-08 08:00] VITALS: BP 145/55
--- NOTE | 2020-04-08 13:12 | NUR ---
SITTING UP IN BED TALKING ON PHONE. MOD ASST TO TRANSFER FROM BED TO FOR TOILETING. DENIES NEW OR WORSE PAIN. OXYGEN 2LNC IN PLACE. CALL LIGHT IN REACH
--- NOTE | 2020-04-08 15:49 | NUR ---
RESTING QUIETLY IN BED. HAS BEEN UP A FEW TIMES TO USE RESTROOM TODAY. B/P HAS BEEN STABLE AND PT DENIES INCREASED PAIN. CALL LIGHT IN REACH
--- NOTE | 2020-04-08 18:55 | NUR ---
BEDSIDE REPORT COMPLETE. PT SITTING UP IN BED WATCHING TV. ALERT AND ORIENTED X4. DENIES ANY NEEDS OR PAIN. TOILETING OFFERED. CONTINUES ON 2L VIA NC. NO SIGNS OF ACUTE DISTRESS NOTED. CALL LIGHT WITHIN REACH. BED ALARM ON. CPOC
[2020-04-08 20:52] VITALS: BP 115/58
--- NOTE | 2020-04-08 22:34 | NUR ---
PT LYING IN BED READING BOOK. DENIES ANY NEEDS OR PAIN. NO SIGNS OF ACUTE DISTRESS NOTED. CONTINUES ON 2L VIA NC. CALL LIGHT WITHIN REACH. BED ALARM ON. WILL CONTINUE TO [facility]
--- NOTE | 2020-04-09 00:45 | NUR ---
PT LYING IN BED EYES CLOSED RESTING. HOB ELEVATED. RR EVEN AND UNLABORED. CALL LIGHT WITHIN REACH. FALL PRECAUTIONS IN PLACE. CPOC
--- NOTE | 2020-04-09 02:30 | NUR ---
ASSISTED PT TO RESTROOM AND BACK TO BED WITH MIN ASSIST. DENIES ANY OTHER NEEDS OR PAIN. CALL LIGHT WITHIN REACH. FALL PRECAUTIONS IN PLACE. CPOC
[2020-04-09 07:04] LABS: BASOPHILS 0.6 % (0-2); EOSINOPHILS 2.8 % (0-7); HEMATOCRIT 27.4 % (36.0-48.0); HEMOGLOBIN 8.6 g/dL (12-16); IMMATURE GRANULOCYTES 0.2 % (0-5); LYMPHOCYTES 28.8 % (15-50); MCHC 31.4 g/dL (31.0-37.0); MCV 101.9 fL (80.0-100.0); MEAN PLATELET VOLUME 9.6 fL (7.4-10.4); NEUTROPHILS 53.6 % (40-80); PLATELET COUNT 225 10x3/uL (130-400); RBC 2.69 10x6/uL (4.00-5.40); WBC 5.3 10x3/uL (4.8-10.8)
[2020-04-09 07:11] LABS: CALCIUM 9.7 mg/dL (8.5-10.1); CARBON DIOXIDE 30.8 mmol/L (21.0-32.0); POTASSIUM - SERUM 4.8 mmol/L (3.5-5.1)
[2020-04-09 08:00] VITALS: BP 168/70
--- NOTE | 2020-04-09 15:30 | NUR ---
LAYING IN BED WITH EYES CLOSED. NO S/S DISTRESS. CALL LIGHT IN REACH.
--- NOTE | 2020-04-09 19:30 | NUR ---
AWAKE AND ALERT. RESTING IN BED WITH RESPIRATIONS UNLABORED. CALL LIGHT IN REACH.
[2020-04-09 21:26] VITALS: BP 114/44
--- NOTE | 2020-04-09 21:56 | NUR ---
AWAKE AND ALERT. RESTING IN BED WITH RESPIRATIONS UNLABORED. NO DISTRESS NOTED. CALL LIGHT IN REACH.
--- NOTE | 2020-04-10 01:07 | NUR ---
SLEEPING WITH RESPIRATIONS UNLABORED. NO DISTRESS NOTED.
--- NOTE | 2020-04-10 05:11 | NUR ---
QUIET HOURS. NO ACUTE CHANGES IN CONDITION THIS SHIFT. NO DISTRESS NOTED.
[2020-04-10 08:00] VITALS: BP 162/59
--- NOTE | 2020-04-10 13:47 | NUR ---
RESTING QUIETLY IN BED.DENIES NEEDS.LARGE HEMATOMA TO LEFT FOREHEAD WITH SCAB,NO DRAINAGE PRESENT.STATES"IT'S GOING DOWN".CL IN EASY REACH,BED IN LOW POSITION.
--- NOTE | 2020-04-10 14:22 | NUR ---
Nutrition Follow-up: Diet: Diabetic + Glucerna with meals PO intake: ~67% average x last 3 meals. She reports good appetite. Last BM: 04/08/20. WT: 122# (04/04/20) Meds noted: metformin. Labs reviewed. Recommend continue current diet and oral nutrition supplements. RD following.
--- NOTE | 2020-04-10 19:26 | NUR ---
AWAKE AND ALERT. RESTING IN BED WITH RESPIRATIONS UNLABORED ON ROOM AIR. NO DISTRESS NOTED. HEMATOMA REMAINS ON LEFT FOREHEAD. STATES SHE HAS HAD A GOOD DAY AND WALKED A LONG WAY WITH THERAPY TODAY.
[2020-04-10 21:18] VITALS: BP 142/53
--- NOTE | 2020-04-11 | NUR ---
ASSISTED TO BATHROOM AND BACK TO BED. NO DISTRESS NOTED.
--- NOTE | 2020-04-11 04:59 | NUR ---
NO ACUTE CHANGES IN CONDITION THIS SHIFT. UP FREQUENTLY TO USE THE BATHROOM. NOW RESTING IN BED WITH NO DISTRESS NOTED.
[2020-04-11 06:47] LABS: BASOPHILS 0.3 % (0-2); EOSINOPHILS 1.7 % (0-7); HEMOGLOBIN 9.4 g/dL (12-16); IMMATURE GRANULOCYTES 0.3 % (0-5); MCH 31.5 pg (26.0-34.0); MCHC 31.3 g/dL (31.0-37.0); MCV 100.7 fL (80.0-100.0); MEAN PLATELET VOLUME 9.7 fL (7.4-10.4); MONOCYTES 12.3 % (2-11); NEUTROPHILS 65.4 % (40-80); RBC 2.98 10x6/uL (4.00-5.40); RDW 12.6 % (11.5-14.5); WBC 6.5 10x3/uL (4.8-10.8)
[2020-04-11 06:58] LABS: ANION GAP 10.5 mmol/L (8-16); CALCIUM 9.7 mg/dL (8.5-10.1); CARBON DIOXIDE 30.2 mmol/L (21.0-32.0); POTASSIUM - SERUM 4.7 mmol/L (3.5-5.1)
[2020-04-11 07:22] LABS: PLATELET COUNT 274 10x3/uL (130-400)
[2020-04-11 08:00] VITALS: BP 136/69
--- NOTE | 2020-04-11 10:15 | NUR ---
SITTING UP IN BED WITH EYES CLOSED. NO S/S DISTRESS. STILL HAS LARGE LEMON SIZED SWOLLEN AREA TO LEFT SIDE OF FOREHEAD. IT HAS A DRIED SCAB ON IT. BRUISING NOTED TO LEFT SIDE OF FACE AND NECK. SIDE RAILS UP X2. CALL LIGHT IN REACH
--- NOTE | 2020-04-11 13:19 | NUR ---
C/O NOT FEELING GOOD. DECLINED THERAPY. 121/48, 72, 19, 97% ON RA. DENIES ANY NEEDS TO HELLP HER FEEL BETTER. WILL CONTINUE TO MONITOR.
--- NOTE | 2020-04-11 19:00 | NUR ---
BEDSIDE REPORT COMPLETE. PT LYING IN BED. HOB ELEVATED. ALERT AND ORIENTED X4. C/O NAUSEA, HALINA RN ADMINISTERED TUMS AND ZOFRAN PER ORDER. NO OTHER CONCERNS VOICED. DENIES ANY PAIN. RR EVEN AND UNLABORED. CALL LIGHT WITHIN REACH. BED ALARM ON. CPOC
[2020-04-11 21:10] VITALS: BP 110/60
--- NOTE | 2020-04-11 23:06 | NUR ---
PT LYING IN BED SUPINE EYES CLOSED RESTING. HOB ELEVATED. RR EVEN AND UNLABORED. CALL LIGHT WITHIN REACH. FALL PRECAUTIONS IN PLACE. WILL CONTINUE TO MONITOR.
--- NOTE | 2020-04-12 02:35 | NUR ---
ASSISTED PT TO RESTROOM AND BACK TO BED WITH SBA. PT DENIES ANY PAIN OR ANY OTHER NEEDS. CALL LIGHT WITHIN REACH. BED ALARM ON. WILL CONTINUE TO MONITOR
--- NOTE | 2020-04-12 05:50 | NUR ---
ASSISTED TO RESTROOM AND BACK TO BED WITH SBA. DENIES ANY OTHER NEEDS. CALL LIGHT WITHIN REACH. BED ALARM ON. WILL CONTINUE TO MONITOR
[2020-04-12 08:00] VITALS: BP 122/51
--- NOTE | 2020-04-12 15:22 | NUR ---
RESTING QUIETLY IN BED, LAYING ON HER BACK. EYES CLOSED. REST EFFORT NON LABORED. SIDE RAILS UP X2. CALL LIGHT IN REACH. BED IN LOWEST POSITION.
[2020-04-12 19:00] VITALS: BP 142/47
--- NOTE | 2020-04-12 19:00 | NUR ---
BEDSIDE REPORT COMPLETE. PT LYING IN BED [place]. ALERT AND ORIENTED X4. DENIES ANY NEEDS OR PAIN. LEFT SIDE FACIAL BRUISING NOTED. CALL LIGHT WITHIN REACH. BED ALARM ON. CPOC
--- NOTE | 2020-04-13 00:09 | NUR ---
PT LYING IN BED SUPINE EYES CLOSED RESTING QUIETLY. HOB ELEVATED. RR EVEN AND UNLABORED. CALL LIGHT WITHIN REACH. BED ALARM ON. WILL CONTINUE TO MONITOR
--- NOTE | 2020-04-13 02:15 | NUR ---
ASSISTED PT TO RESTROOM AND BACK TO BED USING WALKER. DENIES ANY OTHER NEEDS OR PAIN. NO SIGNS OF ACUTE DISTRESS NOTED. CALL LIGHT WITHIN REACH. BED ALARM ON. WILL CONTINUE TO MONITOR
--- NOTE | 2020-04-13 04:40 | NUR ---
ASSISTED PT TO RESTROOM AND BACK TO BED USING WALKER WITH SBA. DENIES ANY OTHER NEEDS OR PAIN. CALL LIGHT WITHIN REACH. BED ALARM ON. CPOC
[2020-04-13 05:20] LABS: BASOPHILS 0.1 % (0-2); EOSINOPHILS 1.2 % (0-7); HEMATOCRIT 28.1 % (36.0-48.0); HEMOGLOBIN 8.9 g/dL (12-16); IMMATURE GRANULOCYTES 0.5 % (0-5); LYMPHOCYTES 19.9 % (15-50); MCHC 31.7 g/dL (31.0-37.0); MCV 101.1 fL (80.0-100.0); MEAN PLATELET VOLUME 9.6 fL (7.4-10.4); MONOCYTES 13.5 % (2-11); NEUTROPHILS 64.8 % (40-80); PLATELET COUNT 279 10x3/uL (130-400); RBC 2.78 10x6/uL (4.00-5.40); RDW 12.6 % (11.5-14.5); WBC 7.4 10x3/uL (4.8-10.8)
[2020-04-13 05:53] LABS: ANION GAP 8.1 mmol/L (8-16); CALCIUM 9.7 mg/dL (8.5-10.1); CARBON DIOXIDE 29.2 mmol/L (21.0-32.0); POTASSIUM - SERUM 4.3 mmol/L (3.5-5.1)
[2020-04-13 05:54] LABS: CREATININE - SERUM 1.3 mg/dL (0.6-1.3)
[2020-04-13 07:51] VITALS: BP 137/50
--- NOTE | 2020-04-13 15:32 | NUR ---
CARE TEAM MEETING 04/11/20: PATIENT IS PROGRESSING IN THERAPY . TENATIVE DISCHARGE DATE IS 04/17/20. WILL CONTINUE TO FOLLOW WITH PATIENT.
--- NOTE | 2020-04-13 16:44 | NUR ---
SBA TO FOR TOILETING. STATES SHE STILL FEELS WEAK AND DOES NOT FEEL GOOD. DENIES ANY INTERVENTION A NURSE CAN DO TO HELP. CALL LIGHT IN REACH. BED IN LOWEST POSITION. SIDE RAILS UP X2.
--- NOTE | 2020-04-13 19:55 | NUR ---
AWAKE AND ALERT. RESPIRAITONS UNLABORED. ASSISTED TO BATHROOM AND BACK TO BED. HEMATOMA REMAINS ON LEFT FOREHEAD WITH SCATTERED BRUISING ON FACE. NO ACUTE DISTRESS NOTED. CALL LIGHT IN REACH.
[2020-04-13 20:00] VITALS: BP 147/51
--- NOTE | 2020-04-14 01:38 | NUR ---
SLEEPING WITH RESPIRATIONS UNLABORED. NO DISTRESS NOTED.
--- NOTE | 2020-04-14 03:00 | NUR ---
ASSISTED TO BATHROOM AND BACK TO BED. HAD BEEN SWEATING. BED PAD CHANGED AND HEAVY BLANKETS REMOVED. NO ACUTE DISTRESS NOTED. CALL LIGHT IN REACH.
--- NOTE | 2020-04-14 06:03 | NUR ---
RESTING IN BED WITH RESPIRATIONS UNLABORED. NO ACUTE CHANGES IN CONDITION THIS SHIFT. NO DISTRESS NOTED.
[2020-04-14 08:16] VITALS: BP 151/52
--- NOTE | 2020-04-14 13:40 | NUR ---
POSITIONED ON RIGHT SIDE WITH EYES CLOSED. RESP EVEN AND UNLABORED WITH NO DISTRESS NOTED. NO APPARENT PROBLEMS NOTED. SIDERAILS UP X 2, CALL LIGHT IN REACH AND BED IN LOW LOCKED POSITION.
--- NOTE | 2020-04-14 14:37 | NUR ---
I have reviewed this patient and I concur with the Shift Assessment completed by the Licensed Practical Nurse today this shift.
[2020-04-14 19:34] VITALS: BP 144/49
--- NOTE | 2020-04-14 19:48 | NUR ---
AWAKE AND ALERT. RESTING IN BED WITH RESPIRATIONS UNLABORED. SMALL HEMATOMA REMAINS TO LEFT FOREHEAD. SCATTERED BRUISES TO FACE. NO ACUTE DISTRESS NOTED. CALL LIGHT IN REACH.
--- NOTE | 2020-04-15 00:57 | NUR ---
SLEEPING WITH RESPIRAITONS UNLABORED. NO DISTRESS NOTED.
--- NOTE | 2020-04-15 05:15 | NUR ---
ASSISTED TO BATHROOM AND BACK TO BED. QUIET HOURS. NO ACUTE CHANGES IN CONDITION THIS SHIFT. NOW RESTING IN BED WITH RESPIRATIONS UNLABORED. NO DISTRESS NOTED.
--- NOTE | 2020-04-15 07:59 | NUR ---
A/A/X4. SITTING ON SIDE OF BED FOR BREAKFAST. DENIES ANY PAIN OR DISCOMFORT AND NO REQUESTS VOICED. SIDERAILS UP X 2, CALL LIGHT IN REACH AND BED IN LOW LOCKED POSITION. BED ALARM IN USE.
[2020-04-15 08:15] VITALS: BP 150/56
--- NOTE | 2020-04-15 15:00 | NUR ---
I have reviewed this patient and I concur with the Shift Assessment completed by the Licensed Practical Nurse today this shift.
[2020-04-15 19:26] VITALS: BP 153/59
--- NOTE | 2020-04-15 19:35 | NUR ---
AWAKE AND ALERT. RESTING IN BED WITH RESPIRATIONS UNLABORED. C/O LEG SORENESS. ADJUSTED LEGS IN BED FOR COMFORT. STATES LEGS WERE SORE SINCE THERAPY YESTERDAY. WILL MONITOR.
--- NOTE | 2020-04-16 00:13 | NUR ---
ASSISTED TO BATHROOM AND BACK TO BED. STATES LEFT UPPER LEG (INNER THIGH) FEELS BETTER BUT STILL SORE. KNOTTY AREA NOTED. VOLTAREN CREAM APPLIED EARLIER AT PAIN MEDICATED HELPED SHE STATED. WILL CONTINUE TO MONITOR.
--- NOTE | 2020-04-16 05:11 | NUR ---
RESTING IN BED WITH RESPIRATIONS UNLABORED. STATES SHE IS STILL SORE IN LEFT INNER THIGH AREA. WILL MEDICATED FOR PAIN. SEE MAR. RESPIRATIONS UNLABORED. NO DISTRESS NOTED.
[2020-04-16 07:18] LABS: BASOPHILS 0.1 % (0-2); EOSINOPHILS 0.9 % (0-7); HEMATOCRIT 25.4 % (36.0-48.0); HEMOGLOBIN 8.1 g/dL (12-16); IMMATURE GRANULOCYTES 0.3 % (0-5); LYMPHOCYTES 12.1 % (15-50); MCH 32.1 pg (26.0-34.0); MCHC 31.9 g/dL (31.0-37.0); MCV 100.8 fL (80.0-100.0); MEAN PLATELET VOLUME 9.4 fL (7.4-10.4); MONOCYTES 11.6 % (2-11); PLATELET COUNT 264 10x3/uL (130-400); RBC 2.52 10x6/uL (4.00-5.40); RDW 12.6 % (11.5-14.5)
[2020-04-16 07:38] LABS: ANION GAP 10.1 mmol/L (8-16); CALCIUM 9.4 mg/dL (8.5-10.1); CARBON DIOXIDE 28.4 mmol/L (21.0-32.0); CREATININE - SERUM 1.1 mg/dL (0.6-1.3); POTASSIUM - SERUM 4.5 mmol/L (3.5-5.1)
[2020-04-16] MEDS ORDERED: LISINOPRIL10 MG PO (07:43)
[2020-04-16 08:00] VITALS: BP 117/48
--- NOTE | 2020-04-16 10:30 | NUR ---
B/P 88/39 AFTER WORKING WITH THERAPY. SHE C/O NOT FEELING WELL AND HAD TO BE RETURNED TO BED AND BLE ELEVATED. IS SCHEDULED TO RECIEVE BLOOD TODAY. CALL LIGHT IN REACH
--- NOTE | 2020-04-16 15:35 | NUR ---
Nutrition Follow-up: Diet: Diabetic + Glucerna TID PO intake: ~83% average x last 6 meals; reports a decreased appetite over the past day or so. States that she is going home soon. States that she is drinking Glucerna although I did note several unopened on her bedside table. Last BM: 04/14/20. WT: 122# (04/04/20), no new weight Meds noted: metformin. Labs reviewed. Recommend continue current diet and oral nutrition supplements. Needs new weight. RD following.
--- NOTE | 2020-04-16 16:04 | NUR ---
SPOKE WITH PATIENT AND SHE WOULD LIKE TO DISCHARGE TO A SNF SHE FEELS THAT WOULD BE A SAFE DISCHARGE. SHE FEELS THAT SHE DOESN'T NEED TO GO HOME YET. HER DAUGHTER WILL BE HERE AFTER WORK AND NURSE WILL VISIT HER. WILL CONTINUE TO FOLLOW WITH PATIENT.
--- NOTE | 2020-04-16 16:08 | NUR ---
RESTING QUIETLY IN BED. CALL LIGHT IN REACH. SIDE RAILS UP X2. SHE IS RECIEVING ONE UNIT OF [facility]'S ORDERED. SHE DENIES PAIN OR SOB.
--- NOTE | 2020-04-16 19:00 | NUR ---
BEDSIDE REPORT COMPLETE. PT LYING IN BED EYES CLOSED RESTING QUIETLY. HOB ELEVATED. EASILY AROUSED WITH VERBAL STIMULI. DENIES ANY NEEDS OR PAIN. TOILETING OFFERED AND DENIED. CALL LIGHT WITHIN REACH. BED ALARM ON. CPOC
[2020-04-16 21:45] VITALS: BP 113/44
--- NOTE | 2020-04-16 23:13 | NUR ---
PT LYING IN BED EYES CLOSED RESTING. HOB ELEVATED. RR EVEN AND UNLABORED. CALL LIGHT WITHIN REACH. BED ALARM ON. WILL CONTINUE TO MONITOR
--- NOTE | 2020-04-17 01:29 | NUR ---
PT LYING IN BED EYES CLOSED RESTING QUIETLY. HOB ELEVATED. CALL LIGHT WITHIN REACH. BED ALARM ON. CPOC
--- NOTE | 2020-04-17 04:00 | NUR ---
ASSISTED PT TO RESTROOM AND BACK TO BED WITH SBA. DENIES ANY OTHER NEEDS OR PAIN. CALL LIGHT WITHIN REACH. BED ALARM ON. CPOC
--- NOTE | 2020-04-17 06:08 | NUR ---
PT LYING IN BED ON RIGHT SIDE EYES CLOSED RESTING. RR EVEN AND UNLABORED. CALL LIGHT WITHIN REACH. BED ALARM ON. CPOC
[2020-04-17 07:13] LABS: BASOPHILS 0.1 % (0-2); EOSINOPHILS 0.7 % (0-7); HEMATOCRIT 28.8 % (36.0-48.0); HEMOGLOBIN 9.3 g/dL (12-16); IMMATURE GRANULOCYTES 0.2 % (0-5); LYMPHOCYTES 10.1 % (15-50); MCH 31.4 pg (26.0-34.0); MCHC 32.3 g/dL (31.0-37.0); MEAN PLATELET VOLUME 9.3 fL (7.4-10.4); MONOCYTES 10.2 % (2-11); NEUTROPHILS 78.7 % (40-80); PLATELET COUNT 250 10x3/uL (130-400); RBC 2.96 10x6/uL (4.00-5.40); RDW 13.4 % (11.5-14.5); WBC 8.4 10x3/uL (4.8-10.8)
[2020-04-17 07:22] LABS: MCV 97.3 fL (80.0-100.0)
[2020-04-17 07:29] LABS: INR 1.12 (0.85-1.17); PROTIME 14.4 SECONDS (11.6-15.0)
[2020-04-17 07:51] LABS: ANION GAP 10.5 mmol/L (8-16); CARBON DIOXIDE 27.8 mmol/L (21.0-32.0); CREATININE - SERUM 1.1 mg/dL (0.6-1.3); POTASSIUM - SERUM 4.3 mmol/L (3.5-5.1)
[2020-04-17 08:00] VITALS: BP 129/50
--- NOTE | 2020-04-17 10:20 | NUR ---
STILL C/O PAIN TO LEFT THIGH. XRAY AND US ORDERED TO RULE OUT PROBLEMS. WILL DC HOME TODAY WITH FAMILY.
--- NOTE | 2020-04-17 12:41 | NUR ---
ULTRA SOUND IS POSITIVE FOR DVT TO LLE. CALL PLACED TO DR AGUILERA. WAITING ON RETURN CALL.
--- NOTE | 2020-04-17 13:29 | NUR ---
PT'S DC DELAYED ONE DAY. DR AGUILERA STARTED PT ON ELIQUIS 5MG BID FOR DVT. SHE ALSO HAS APPT 04/18/20 (TOMORROW) TO SEE ORTHO REGUARDING HER KNEE. (PT STATES SHE SEES THE OFFICE FOR A "SHOT IN MY KNEE"......
--- NOTE | 2020-04-17 13:47 | NUR ---
OK'D TO GIVE ELIQUIS 5MG NOW AND AGAIN AT 2100 SCHEDULED. SPOKE WITH PHARMACIST, JOVANNY
--- NOTE | 2020-04-17 18:50 | NUR ---
BEDSIDE REPORT COMPLETE. PT SITTING UP IN BED ALERT AND ORIENTED X4. DENIES ANY NEEDS. C/O LEFT UPPER THIGH DISCOMFORT. DOES NOT WANT PAIN MEDS AT THIS TIME. NO SIGNS OF ACUTE DISTRESS NOTED. LEFT FACIAL BRUISING RESOLVING. LEFT FOREHEAD HEMATOMA WITH SCAB INTACT. CALL LIGHT WITHIN REACH. BED ALARM ON. CPOC
[2020-04-17 21:55] VITALS: BP 143/51
--- NOTE | 2020-04-17 23:25 | NUR ---
PT LYING IN BED ON RIGHT SIDE EYES CLOSED RESTING QUIETLY. RR EVEN AND UNLABORED. CALL LIGHT WITHIN REACH. BED ALARM ON. WILL CONTINUE TO MONITOR
--- NOTE | 2020-04-18 01:18 | NUR ---
PT LYING IN BED EYES CLOSED RESTING. RR EVEN AND UNLABORED. CALL LIGHT WITHIN REACH. BED ALARM ON. CPOC
--- NOTE | 2020-04-18 04:00 | NUR ---
ASSISTED PT TO RESTROOM AND BACK TO BED WITH SBA. DENIES ANY NEEDS OR PAIN. CALL LIGHT WITHIN REACH. BED ALARM ON. CPOC
[2020-04-18 08:42] VITALS: BP 131/53
--- NOTE | 2020-04-18 10:02 | NUR ---
C/O PAIN TO LEFT WRIST WHERE THERE IS AN EGG SIZED SWOLLEN PLACE. DR AGUILERA LOOKED AT IT THIS MORNING AND STATED IT WAS A HEMATOMA. PT WAS STARTED ON ELIQUIS YESTERDAY AFTER DOPPLER REVEALED DVT TO LLE. SHE C/O NOT FEELING WELL AND WANTING TO STAY IN BED. WAS ABLE TO TRANSFER WITH MIN ASST TO TO TOILET AND BACK. SHE IS SCHEDULED TO DC HOME TODAY WITH FAMILY.
--- NOTE | 2020-04-18 12:32 | NUR ---
CARE TEAM MEETING: DUE TO CHANGE IN MEDICAL CONDTION PATIENT DISCHARGE FROM REHAB AND ADMITTED TO ACUTE FLOOR.FAMILY HAS BEEN NOTIFIED PER PRIMARY NURSE.
--- NOTE | 2020-04-18 13:02 | NUR ---
LAYING IN BED RESTING QUIETLY. SAT UP FOR LUNCH BUT LAYED BACK DOWN. DECLINES TO SET UP ANY LONGER STATING SHE WAS TOO TIRED. CALL LIGHT IN REACH
--- NOTE | 2020-04-18 13:09 | NUR ---
Nutrition Follow-up: Diet: Diabetic + Glucerna TID PO intake: 10-25% x 3 meals; She has not been feeling good lately so her appetite has been decreased. Last BM: 04/14/20> WT: 122# (04/04/20), no new weight Meds noted: metformin. Labs reviewed. May need increase in bowel regimen. Hopefully appetite would improve with BM regularity. Needs new weight. Recommend continue current diet and oral nutrition supplements. Encourage PO intake. RD following.
--- NOTE | 2020-04-18 15:15 | NUR ---
DC TO ACUTE FLOOR NP. REPORT CALLED TO JEF MOORE. FAMILY KNOWS ABOUT TRANSFER. ALL PERSONAL BELONGINGS SENT WITH PT. PT HAS ORTHOSTATIC HYPOTENSION, BRADYCARDIA AND NEW DX DVT TO LLE.
== END 2020-04-18 15:17 | disposition home health service (06) | DRG 558 ==
LOC: D.REHAB 20:45
PROVIDERS: ADMIT Emergency Medicine; ATTEND Emergency Medicine
DX: M62.50 Muscle wasting and atrophy, not elsewhere classified, unspecified site (principal); W19.XXXD Unspecified fall, subsequent encounter; I48.91 Unspecified atrial fibrillation; E11.9 Type 2 diabetes mellitus without complications; I10 Essential (primary) hypertension; M81.0 Age-related osteoporosis without current pathological fracture; Z95.0 Presence of cardiac pacemaker; N28.9 Disorder of kidney and ureter, unspecified; R55 Syncope and collapse; E03.9 Hypothyroidism, unspecified; E78.5 Hyperlipidemia, unspecified; R26.9 Unspecified abnormalities of gait and mobility; R53.81 Other malaise

== ENCOUNTER 2020-04-18 15:47 | Inpatient (IN) | payer MEDICARE, OTHER ==
[~2020-04-18] VITALS: Ht 177.8 cm; Wt 45.5 kg
[~2020-04-18 15:47] MED LIST changes: +LISINOPRIL10 MG PO
[2020-04-18 18:01] VITALS: BP 116/50
--- NOTE | 2020-04-18 18:34 | NUR ---
PT LUDINRAMIREZ [place] BED, DAUGHTER AT BEDSIDE, PT HAS IV SL IN LEFT FA. PT STATES LEFT LEG IS ACHING AND HAS A HEADACHE, ADMINISTERED PRN PAIN MEDICATION ABOUT 5. PT ON RA, NO S/SX OF DISTRESS, CONTINUE WITH PLAN OF CARE
[2020-04-18 20:00] VITALS: BP 110/49
[2020-04-19] VITALS (7 sets, daily range): BP systolic 107–149; BP diastolic 54–75; Ht 177.8 cm; Wt 45.5 kg
--- NOTE | 2020-04-19 05:48 | NUR ---
1952) ASSISTED TO BATHROOM AND TO BRUSH TEETH. YE. WELL WITH MODERATE ASSIST ONE NURSE.SMALL AMT. SWELLING STILL LEFT LEG AND FOOT WITH SORENESS ON MOVEMENT. PEDAL PULSE PRESENT C/O MINIMAL DECREASE IN SENSATION. WILL CONTINUE TO MONITOR FOR ANY CHGES IN NEUROVASCULAR STATUS AND FOLLOW CURRENT PLAN OF CARE
[2020-04-19 06:46] LABS: BASOPHILS 0.1 % (0-2); EOSINOPHILS 0.6 % (0-7); HEMOGLOBIN 9.6 g/dL (12-16); IMMATURE GRANULOCYTES 0.5 % (0-5); LYMPHOCYTES 11.2 % (15-50); MCH 31.3 pg (26.0-34.0); MCV 97.7 fL (80.0-100.0); MEAN PLATELET VOLUME 9.7 fL (7.4-10.4); MONOCYTES 12.4 % (2-11); NEUTROPHILS 75.2 % (40-80); RBC 3.07 10x6/uL (4.00-5.40); RDW 13.1 % (11.5-14.5); WBC 8.1 10x3/uL (4.8-10.8)
[2020-04-19 06:51] LABS: PLATELET COUNT 332 10x3/uL (130-400)
[2020-04-19 07:01] LABS: ANION GAP 10.2 mmol/L (8-16); CALCIUM 9.4 mg/dL (8.5-10.1); CARBON DIOXIDE 26.5 mmol/L (21.0-32.0); CREATININE - SERUM 1.2 mg/dL (0.6-1.3); POTASSIUM - SERUM 3.7 mmol/L (3.5-5.1)
--- NOTE | 2020-04-19 07:26 | NUR ---
ALERT AND ORIENTED. LUNGS CLEAR BILATERALLY. HEART SOUNDS S1 AND S2 HEARD IN ALL . BOWEL SOUNDS ACTIVE X 4. SKIN INTACT WITHOUT REDNESS. IV TO LFA SL PATENT WITHOUT REDNESS. DENIES NEEDS. BED ALARM ON. CALL ORTEGA AND PERSONAL ITEMS IN REACH. WILL CONTINUE TO MONITOR.
--- NOTE | 2020-04-19 08:24 | HP ---
PATIENT: PHAN QUEZADA MEDICAL RECORD: [id number] ACCOUNT: [id number] LOCATION:D.MS [id number] : 31 ADMISSION DATE: 04/18/20 PCP: JEANNIE UNDERWOOD MD HISTORY AND PHYSICAL EXAMINATION CHIEF COMPLAINT: Left lower extremity pain and swelling. HISTORY OF PRESENT ILLNESS: This is an 84-year-old white female who had a fall at home and was admitted to [place] on 04/01/2020. She was then discharged to inpatient rehabilitation late evening 04/03/2020 where she has been until coming backing up to Med/Surg room 2216. She was to be discharged home yesterday from rehab, but was complaining of increased pain and swelling in her left lower extremity venous. Doppler ultrasound was done on 04/17/2020 that showed deep vein thrombosis in the left distal superficial femoral and popliteal veins. She is admitted upstairs for treatment of that. PAST MEDICAL HISTORY: Includes diabetes, hypothyroidism, osteoarthritis, hyperlipidemia, paroxysmal atrial fibrillation, sick sinus syndrome, history of coronary artery disease, and worsening cognitive decline. The patient also has a history of left lower extremity DVT and PE in January 2017. PAST SURGICAL HISTORY: Hysterectomy, partial thyroidectomy, pacemaker placement, and ORIF hip fracture in 2012. HOME MEDICATIONS: Ferrous sulfate 325 mg twice a day, lisinopril 20 mg at bedtime, pravastatin 20 mg at bedtime, Betapace 80 mg twice a day, tramadol 50 mg q.6 hours p.r.n. pain, levothyroxine 50 mcg once a day, Metformin 500 mg at bedtime. She has been on Coumadin, but when she was admitted on 04/01/2020, her INR was elevated and it had been held. ALLERGIES: SULFA. HABITS: No tobacco, alcohol, or drugs. SOCIAL HISTORY: She is , retired. A grandson lives with her, but he works during the day. FAMILY HISTORY: Noncontributory. REVIEW OF SYSTEMS: HEENT: No particular sinus or allergy problems. RESPIRATORY: No history of emphysema or COPD. CARDIAC: She has a history of paroxysmal atrial fibrillation and sick sinus syndrome and coronary artery disease. She has a pacemaker. GASTROINTESTINAL: No significant heartburn, diarrhea, or constipation. GENITOURINARY: No significant problems there. MUSCULOSKELETAL: She has osteoarthritis. NEUROLOGIC: She has worsening decline in cognition. PSYCHIATRIC: Denies depression or melancholia. PHYSICAL EXAMINATION: VITAL SIGNS: Temperature 98.4, pulse 61, respirations 19, blood pressure 110/49, and O2 sat 97%. GENERAL: She is awake and alert. She is in no acute distress. She has some confusion, but still aware of lot of things. HISTORY AND PHYSICAL [id number] PHAN QUEZADA HEENT: Unremarkable. NECK: Supple. No JVD or bruit. HEART: Regular rate and rhythm. LUNGS: Clear. ABDOMEN: Soft. EXTREMITIES: He has some tenderness to palpation of the left lower extremity and generalized swelling there. Again, the venous Doppler ultrasound done yesterday while she was still down in rehab shows the left distal superficial femoral and popliteal vein DVT. ASSESSMENT: 1. Left lower extremity deep venous thrombosis. 2. Hypertension. 3. Type 2 diabetes. 4. Cognitive decline. PLAN: She has been started on Eliquis 5 mg twice a day. We will increase that to 10 mg twice a day for 7 days, then go back down to 5 mg twice a day. We will hold her lisinopril as her blood pressure is in little low side, hold sotalol for right now. We will place her on telemetry. We will ask case management to look into the costs of either Eliquis or Pradaxa or Xarelto for possibly resuming Coumadin. The tests or procedures as warranted. I discussed this with the patient and her daughter at bedside. TRANSINT:[id number] Voice Confirmation ID: [id number] DOCUMENT ID: [id number] JEANNIE UNDERWOOD MD at 0824 CC: [id number] DICTATION DATE: 04/18/202323 LEAD GAME DESIGNER: 04/19/20 0156 [facility] [address] [place] [address]
--- NOTE | 2020-04-19 11:54 | NUR ---
PT ASKING IF OK TO GET PATIENT OOB TO WALK. SPOKE WITH DR UNDERWOOD WHO STATES OK FOR PATIENT TO GET UP ORDERED.
--- NOTE | 2020-04-19 12:35 | NUR ---
RESTING IN BED. DENIES NEEDS. WILL CONTINUE TO MONITOR.
--- NOTE | 2020-04-19 16:39 | NUR ---
RESTING IN BED. DENIES NEEDS. WILL CONTINUE TO MONITOR.
[2020-04-20] VITALS: BP 101/59
[2020-04-20 04:00] VITALS: BP 114/59
[2020-04-20 06:06] LABS: BASOPHILS 0.2 % (0-2); EOSINOPHILS 1.5 % (0-7); IMMATURE GRANULOCYTES 0.3 % (0-5); LYMPHOCYTES 18.2 % (15-50); MCH 31.3 pg (26.0-34.0); MCHC 32.1 g/dL (31.0-37.0); MCV 97.2 fL (80.0-100.0); MEAN PLATELET VOLUME 9.6 fL (7.4-10.4); NEUTROPHILS 66.8 % (40-80); PLATELET COUNT 349 10x3/uL (130-400); RBC 2.88 10x6/uL (4.00-5.40); RDW 12.8 % (11.5-14.5); WBC 6.2 10x3/uL (4.8-10.8)
--- NOTE | 2020-04-20 06:23 | NUR ---
ASSESSED AT THE BEGINNING OF THE SHIFT. PT IS ALERT AND ORIENTED X'S 3. WE ARE ASSISTING HER UP WHEN SHE HAS TO GO TO THE BATHROOM. HER LEFT LEG LOOKS GOOD WITH VERY LITTLE REDNESS. SHE IS ON ROOM AIR AND HAS SLEPT MOST OF THE NIGHT WITH NO COMPLAINTS.
[2020-04-20 06:34] LABS: ANION GAP 9.4 mmol/L (8-16); CALCIUM 9.2 mg/dL (8.5-10.1); CARBON DIOXIDE 27.4 mmol/L (21.0-32.0); CREATININE - SERUM 1.2 mg/dL (0.6-1.3); POTASSIUM - SERUM 3.8 mmol/L (3.5-5.1)
--- NOTE | 2020-04-20 06:55 | NUR ---
ALERT AND ORIENTED. NO C/O PAIN. NO S/S OF ACUTE DISTRESS NOTED. UP WITH ASSIST. IV TO LEFT FOREARM, SL. SITE PATENT WITHOUT REDNESS OR SWELLING. WEARS GLASSES. BED ALARM ON. DENIES ANY NEEDS AT THIS TIME. CALL LIGHT IN REACH. WILL CONTINUE TO MONITOR.
[2020-04-20 10:29] VITALS: BP 105/40
--- NOTE | 2020-04-20 10:49 | NUR ---
I have reviewed this patient and I concur with the Shift Assessment completed by the Licensed Practical Nurse today this shift.
[2020-04-20 13:47] VITALS: BP 123/60
--- NOTE | 2020-04-20 14:27 | MORECARE ---
CASE MANAGEMENT DISCHARGE SUMMARY PATIENT: PHAN QUEZADA UNIT: [id number] ADM DATE: 04/18/20 AGE: 84 : 33 SEX: F ROOM/BED: D.2216 AUTHOR: RONNY DANGELO PHYSICIAN: REFERRING PHYSICIAN: JEANNIE UNDERWOOD MD DATE OF SERVICE: 04/20/20 Discharge Plan Patient Name: PHAN QUEZADA Facility: [facility]:[place] : 1935 Planned Disposition: Home Anticipated Discharge Date: Discharge Date: Expected LOS: Initial Reviewer: [email or web address] Initial Review Date: 04/20/2020 Generated: 04/20/20 3:27 pm DCPIA - Discharge Planning Initial Assessment Updated by [email or web address]: Abeba Gerard on 04/20/20 2:25 pm * Is the patient Alert and Oriented? Yes * PCP KJ * Pharmacy [facility]. * Preadmission Environment Home with Family * ADLs Independent * Other Equipment WALKER,CANE, SC * Community resources currently utilized None * Additional services required to return to the preadmission environment? No * Can the patient safely return to the preadmission environment? Yes * Has this patient been hospitalized within the prior 30 days at any hospital? No Patient Name: PHAN QUEZADA Page [id number] at 1427 All edits/amendments must be made on the electronic document DICTATION DATE: 04/20/20 142 RIGGING ENGINEER: GINA 04/20/20 1427 RPT#: [id number] DC DATE: STATUS: ADM IN [facility] [address] [place] [address] END OF REPORT
--- NOTE | 2020-04-20 14:35 | MORECARE ---
CASE MANAGEMENT DISCHARGE SUMMARY PATIENT: PHAN QUEZADA UNIT: [id number] ADM DATE: 04/18/20 AGE: 84 : 33 SEX: F ROOM/BED: D.2216 AUTHOR: LORETODOC PHYSICIAN: REFERRING PHYSICIAN: JEANNIE UNDERWOOD MD DATE OF SERVICE: 04/20/20 Discharge Plan Patient Name: PHAN QUEZADA Facility: [facility]:[place] : 1935 Planned Disposition: Home Anticipated Discharge Date: Discharge Date: Expected LOS: Initial Reviewer: [email or web address] Initial Review Date: 04/20/2020 Generated: 04/20/20 3:34 pm Comments DCP- Discharge Planning Updated by [email or web address]: Abeba Gerard on 04/20/20 1:[address] Patient Name: PHAN QUEZADA Admission Status: Elective Accout number: [id number] Admission Date: 04-18-2020 : 1935 Admission Diagnosis:ACUTE EMBOLISM AND THOMBOS UNSP DEEP VEINS OF L LOW EXT Attending: JEANNIE UNDERWOOD Current LOS: 2 Anticipated DC Date: Planned Disposition: Home Primary Insurance: MEDICARE A & B Discharge Planning Comments: CM met with patient at bedside after explaining CM role and obtaining verbal consent. CM discussed availability / needs of home health, REHAB and medical equipment. PATIENT DENIES ANY DISCHARGE NEEDS. STATES GRANDSON LIVES WITH HER AND HELPS HER. DOES NOT WANT HH. PLAN IS FOR POSSIBLE DC TOMORROW. CM TO CALL HER PHARMACY TO SEE WHAT PRESCRIPTION WILL BE LESS EXPENSIVE FOR HER INSTEAD OF COUMADIN. Talent Development Manager: Abeba Gerard DCPIA - Discharge Planning Initial Assessment Updated by [email or web address]: Abeba Gerard on 04/20/20 2:25 pm * Is the patient Alert and Oriented? Yes * PCP KJ * Pharmacy [facility]. * Preadmission Environment Home with Family * ADLs Independent * Other Equipment WALKER,CANE, SC * Community resources currently utilized None * Additional services required to return to the preadmission environment? No * Can the patient safely return to the preadmission environment? Yes * Has this patient been hospitalized within the prior 30 days at any hospital? No Last DP export: 04/20/20 1:27 p Patient Name: PHAN QUEZADA Page 39137 at 1435 All edits/amendments must be made on the electronic document DICTATION DATE: 04/20/201433 PLANT HEALTH MANAGER: GINA 04/20/201433 RPT#: [id number] DC DATE: STATUS: ADM IN [facility] [address] [place] [address] END OF REPORT
--- NOTE | 2020-04-20 17:52 | MORECARE ---
CASE MANAGEMENT DISCHARGE SUMMARY PATIENT: PHAN QUEZADA UNIT: [id number] ADM DATE: 04/18/20 AGE: 84 : 33 SEX: F ROOM/BED: D.2216 AUTHOR: LORETODOC PHYSICIAN: REFERRING PHYSICIAN: JEANNIE UNDERWOOD MD DATE OF SERVICE: 04/20/20 Discharge Plan Patient Name: PHAN QUEZADA Facility: [facility]:[place] : 1935 Planned Disposition: Home Anticipated Discharge Date: Discharge Date: Expected LOS: Initial Reviewer: [email or web address] Initial Review Date: 04/20/2020 Generated: 04/20/20 6:51 pm Comments DCP- Discharge Planning Updated by [email or web address]: Abeba Gerard on 04/20/20 4:[address] Patient Name: PHAN QUEZADA Admission Status: Elective Accout number: [id number] Admission Date: 04-18-2020 : 1935 Admission Diagnosis:ACUTE EMBOLISM AND THOMBOS UNSP DEEP VEINS OF L LOW EXT Attending: JEANNIE UNDERWOOD Current LOS: 2 Anticipated DC Date: Planned Disposition: Home Primary Insurance: MEDICARE A & B Discharge Planning Comments: I CALLED MEDICARE D AND HER MEDICARE D IS SHOWING INACTIVE AT THIS TIME, THEREFORE THEY CANNOT TELL ME WHICH MEDICATION WOULD BE LESS EXPENSIVE. I HAVE A FREE 30 DAY TRIAL ON XARELTO OR ELIQUIS THAT WE CAN GIVE HER. I WILL LEAVE IT IN THE APPAREL RENTAL CLERKTUBERCULOSIS SPECIALIST FOR THE WEEKEND APPAREL RENTAL CLERK. PATIENT ANTICIPATES DISCHARGE TOMORROW. CM WILL FOLLOW AND ASSIST NEEDED. Photographic Restorer: Abeba Gerard DCP- Discharge Planning Updated by [email or web address]: Abeba Gerard on 04/20/20 1:[address] Patient Name: PHAN QUEZADA Admission Status: Elective Accout number: [id number] Admission Date: 04-18-2020 : 1935 Admission Diagnosis:ACUTE EMBOLISM AND THOMBOS UNSP DEEP VEINS OF L LOW EXT Attending: JEANNIE UNDERWOOD Current LOS: 2 Anticipated DC Date: Planned Disposition: Home Primary Insurance: MEDICARE A & B Discharge Planning Comments: CM met with patient at bedside after explaining CM role and obtaining verbal consent. CM discussed availability / needs of home health, REHAB and medical equipment. PATIENT DENIES ANY DISCHARGE NEEDS. STATES GRANDSON LIVES WITH HER AND HELPS HER. DOES NOT WANT HH. PLAN IS FOR POSSIBLE DC TOMORROW. CM TO CALL HER PHARMACY TO SEE WHAT PRESCRIPTION WILL BE LESS EXPENSIVE FOR HER INSTEAD OF COUMADIN. Photographic Restorer: Abeba Gerard DCPIA - Discharge Planning Initial Assessment Updated by [id number]: Abeba Gerard on 04/20/20 2:25 pm * Is the patient Alert and Oriented? Yes * PCP KJ * Pharmacy [facility]. * Preadmission Environment Home with Family * ADLs Independent * Other Equipment WALKER,CANE, SC * Community resources currently utilized None * Additional services required to return to the preadmission environment? No * Can the patient safely return to the preadmission environment? Yes * Has this patient been hospitalized within the prior 30 days at any hospital? No Last DP export: 04/20/20 1:35 p Patient Name: PHAN QUEZADA Page 34471 at 1752 All edits/amendments must be made on the electronic document DICTATION DATE: 04/20/201750 SUPERVISOR PLASTERING: GINA 04/20/201750 RPT#: [id number] DC DATE: STATUS: ADM IN [facility] [address] [place] [address] END OF REPORT
[2020-04-20 18:03] VITALS: BP 106/55
--- NOTE | 2020-04-20 18:14 | NUR ---
ALERT AND ORIENTED, RESTING IN BED WITH EYES OPEN. NO C/O PAIN. NO S/S OF ACUTE DISTRESS NOTED. DENIES ANY NEEDS AT THIS TIME. CALL LIGHT IN REACH. WILL CONTINUE TO MONITOR.
--- NOTE | 2020-04-20 18:37 | MORECARE ---
CASE MANAGEMENT DISCHARGE SUMMARY PATIENT: PHAN ABDUL UNIT: [id number] ADM DATE: 04/18/20 AGE: 84 : 33 SEX: F ROOM/BED: D.2216 AUTHOR: LORETO,DOC PHYSICIAN: REFERRING PHYSICIAN: JEANNIE UNDERWOOD MD DATE OF SERVICE: 04/20/20 Discharge Plan Patient Name: PHAN ABDUL Facility: [facility]:[place] : 1935 Planned Disposition: Home Anticipated Discharge Date: Discharge Date: Expected LOS: Initial Reviewer: [email or web address] Initial Review Date: 04/20/2020 Generated: 04/20/20 7:37 pm Comments DCP- Discharge Planning Updated by [email or web address]: Mindy Sandoval on 04/20/20 5:[address] CM met with patient to discuss initial discharge planning. Patient is in agreement to proceed with the assessment with present. Patient reports that she lives at home independently with her g-son, Moy Kearney, and he is at home at night-time. Patient is alert/oriented. Stairs/steps: 4 w/rail. PCP: . Pharmacy: [facility] [address] ([address]), [facility] [address] Patient states they have been able to obtain all of their prescribed medications. HHS: No. DME: walker, quad cane, rollator w/seat, shower bench, walk-in shower, grab bars. Patient gives permission to speak with family members/care givers. Emergency contact: Matt Abdul (son) [phone]. Patient is Independent with all ADL's, medication management SUPERVISOR ASSEMBLY. CM discussed the availability of HH, Rehab, DME services. Patient denies the need for additional services at this time and feels safe returning to previous environment. Patient denies being hospitalized within the past 30 days. Patient denies the use of community resources SUPERVISOR ASSEMBLY. Transportation at time of discharge: Moy Kearney. DCP- Discharge Planning Updated by [id number]: Abeba Gerard on 04/20/20 4:[address] Patient Name: PHAN ABDUL Admission Status: Elective Accout number: [id number] Admission Date: 04-18-2020 : 1935 Admission Diagnosis:ACUTE EMBOLISM AND THOMBOS UNSP DEEP VEINS OF L LOW EXT Attending: JEANNIE UNDERWOOD Current LOS: 2 Anticipated DC Date: Planned Disposition: Home Primary Insurance: MEDICARE A & B Discharge Planning Comments: I CALLED MEDICARE D AND HER MEDICARE D IS SHOWING INACTIVE AT THIS TIME, THEREFORE THEY CANNOT TELL ME WHICH MEDICATION WOULD BE LESS EXPENSIVE. I HAVE A FREE 30 DAY TRIAL ON XARELTO OR ELIQUIS THAT WE CAN GIVE HER. I WILL LEAVE IT IN THE DOCTOR'S ASSISTANTTERRAPIN FISHER FOR THE WEEKEND DOCTOR'S ASSISTANT. PATIENT ANTICIPATES DISCHARGE TOMORROW. CM WILL FOLLOW AND ASSIST NEEDED. Clinical Cytogeneticist Scientist: Abeba Gerard DCP- Discharge Planning Updated by [email or web address]: Abeba Gerard on 04/20/20 1:[address] Patient Name: PHAN ABDUL Admission Status: Elective Accout number: [id number] Admission Date: 04-18-2020 : 1935 Admission Diagnosis:ACUTE EMBOLISM AND THOMBOS UNSP DEEP VEINS OF L LOW EXT Attending: JEANNIE UNDERWOOD Current LOS: 2 Anticipated DC Date: Planned Disposition: Home Primary Insurance: MEDICARE A & B Discharge Planning Comments: CM met with patient at bedside after explaining CM role and obtaining verbal consent. CM discussed availability / needs of home health, REHAB and medical equipment. PATIENT DENIES ANY DISCHARGE NEEDS. STATES GRANDSON LIVES WITH HER AND HELPS HER. DOES NOT WANT HH. PLAN IS FOR POSSIBLE DC TOMORROW. CM TO CALL HER PHARMACY TO SEE WHAT PRESCRIPTION WILL BE LESS EXPENSIVE FOR HER INSTEAD OF COUMADIN. Clinical Cytogeneticist Scientist: Abeba Gerard DCPIA - Discharge Planning Initial Assessment Updated by [email or web address]: Abeba Gerard on 04/20/20 2:25 pm * Is the patient Alert and Oriented? Yes * PCP KJ * Pharmacy [facility]. * Preadmission Environment Home with Family * ADLs Independent * Other Equipment WALKER,CANE, SC * Community resources currently utilized None * Additional services required to return to the preadmission environment? No * Can the patient safely return to the preadmission environment? Yes * Has this patient been hospitalized within the prior 30 days at any hospital? No Last DP export: 04/20/20 4:52 p Patient Name: PHAN ABDUL Page 45488 at 1837 All edits/amendments must be made on the electronic document DICTATION DATE: 04/20/201836 TUCK POINTER HELPER: GINA 04/20/201836 RPT#: [id number] DC DATE: STATUS: ADM IN [facility] [address] [place] [address] END OF REPORT
[2020-04-20 20:00] VITALS: BP 127/52
[2020-04-21 00:01] VITALS: BP 129/60
[2020-04-21 05:16] VITALS: BP 118/64
[2020-04-21 10:39] VITALS: BP 128/81
[2020-04-21] MEDS ORDERED: ELIQUIS5 MG PO (12:08)
--- NOTE | 2020-04-21 14:44 | NUR ---
DISCHARGED PATIENT HOME WITH HOME HEALTH, ACCOMPANIED BY FAMILY. DISCONTINUED IV, CATHETER TIP INTACT. WENT OVER DISCHARGE INSTRUCTIONS WITH PATIENT AND DAUGHTER, VERBALIZED UNDERSTANDING OF INSTRUCTIONS. DENIES ANYTHING FURTHER.
--- NOTE | 2020-04-22 11:03 | MORECARE ---
CASE MANAGEMENT DISCHARGE SUMMARY PATIENT: PHAN ABDUL UNIT: [id number] ADM DATE: 04/18/20 AGE: 84 : 33 SEX: F ROOM/BED: D.2216 AUTHOR: LORETO,DOC PHYSICIAN: REFERRING PHYSICIAN: JEANNIE UNDERWOOD MD DATE OF SERVICE: 04/22/20 Discharge Plan Patient Name: PHAN ABDUL Facility: [facility]:[place] : 1935 Planned Disposition: Home Anticipated Discharge Date: Discharge Date: 04/21/2020 Expected LOS: Initial Reviewer: [email or web address] Initial Review Date: 04/20/2020 Generated: 04/22/20 12:03 pm Comments DCP- Discharge Planning Updated by [email or web address]: Mindy Sandoval on 04/20/20 5:[address] CM met with patient to discuss initial discharge planning. Patient is in agreement to proceed with the assessment with present. Patient reports that she lives at home independently with her g-son, Moy Kearney, and he is at home at night-time. Patient is alert/oriented. Stairs/steps: 4 w/rail. PCP: . Pharmacy: [facility] [address]), [facility] [address] Patient states they have been able to obtain all of their prescribed medications. HHS: No. DME: walker, quad cane, rollator w/seat, shower bench, walk-in shower, grab bars. Patient gives permission to speak with family members/care givers. Emergency contact: Matt Abdul (son) [phone]. Patient is Independent with all ADL's, medication management SAMPLE TESTER GRINDER. CM discussed the availability of HH, Rehab, DME services. Patient denies the need for additional services at this time and feels safe returning to previous environment. Patient denies being hospitalized within the past 30 days. Patient denies the use of community resources SAMPLE TESTER GRINDER. Transportation at time of discharge: Moy Kearney. DCP- Discharge Planning Updated by [email or web address]: Abeba Gerard on 04/20/20 4:[address] Patient Name: PHAN ABDUL Admission Status: Elective Accout number: [id number] Admission Date: 04-18-2020 : 1935 Admission Diagnosis:ACUTE EMBOLISM AND THOMBOS UNSP DEEP VEINS OF L LOW EXT Attending: JEANNIE UNDERWOOD Current LOS: 2 Anticipated DC Date: Planned Disposition: Home Primary Insurance: MEDICARE A & B Discharge Planning Comments: I CALLED MEDICARE D AND HER MEDICARE D IS SHOWING INACTIVE AT THIS TIME, THEREFORE THEY CANNOT TELL ME WHICH MEDICATION WOULD BE LESS EXPENSIVE. I HAVE A FREE 30 DAY TRIAL ON XARELTO OR ELIQUIS THAT WE CAN GIVE HER. I WILL LEAVE IT IN THE BOILER OPERATORS SUPERVISORSPONGE PACKER FOR THE WEEKEND BOILER OPERATORS SUPERVISOR. PATIENT ANTICIPATES DISCHARGE TOMORROW. CM WILL FOLLOW AND ASSIST NEEDED. Commercial Construction Project Manager: Abeba Gerard DCP- Discharge Planning Updated by [email or web address]: Abeba Gerard on 04/20/20 1:[address] Patient Name: PHAN ABDUL Admission Status: Elective Accout number: [id number] Admission Date: 04-18-2020 : 1935 Admission Diagnosis:ACUTE EMBOLISM AND THOMBOS UNSP DEEP VEINS OF L LOW EXT Attending: JEANNIE UNDERWOOD Current LOS: 2 Anticipated DC Date: Planned Disposition: Home Primary Insurance: MEDICARE A & B Discharge Planning Comments: CM met with patient at bedside after explaining CM role and obtaining verbal consent. CM discussed availability / needs of home health, REHAB and medical equipment. PATIENT DENIES ANY DISCHARGE NEEDS. STATES GRANDSON LIVES WITH HER AND HELPS HER. DOES NOT WANT HH. PLAN IS FOR POSSIBLE DC TOMORROW. CM TO CALL HER PHARMACY TO SEE WHAT PRESCRIPTION WILL BE LESS EXPENSIVE FOR HER INSTEAD OF COUMADIN. Commercial Construction Project Manager: Abeba Gerard DCPIA - Discharge Planning Initial Assessment Updated by [email or web address]: Abeba Gerard on 04/20/20 2:25 pm * Is the patient Alert and Oriented? Yes * PCP KJ * Pharmacy [facility]. * Preadmission Environment Home with Family * ADLs Independent * Other Equipment WALKER,CANE, SC * Community resources currently utilized None * Additional services required to return to the preadmission environment? No * Can the patient safely return to the preadmission environment? Yes * Has this patient been hospitalized within the prior 30 days at any hospital? No External Providers [facility] Next Contact Date: Service Request Date: Service Type: Resolution: Reviewer: Comments: Last DP export: 04/20/20 5:37 p Patient Name: PHAN ABDUL Page [id number] at 1103 All edits/amendments must be made on the electronic document DICTATION DATE: 04/22/201102 SALES AND SERVICE ENGINEER: GINA 04/22/201102 RPT#: [id number] DC DATE:04/21/20 STATUS: DIS IN [facility] [address] [place] [address] END OF REPORT
--- NOTE | 2020-04-22 22:56 | MORECARE ---
CASE MANAGEMENT DISCHARGE SUMMARY PATIENT: PHAN ABDUL UNIT: [id number] ADM DATE: 04/18/20 AGE: 84 : 33 SEX: F ROOM/BED: D.2216 AUTHOR: LORETO,DOC PHYSICIAN: REFERRING PHYSICIAN: JEANNIE UNDERWOOD MD DATE OF SERVICE: 04/22/20 Discharge Plan Patient Name: PHAN ABDUL Facility: [facility]:[place] : 1935 Planned Disposition: Home Anticipated Discharge Date: Discharge Date: 04/21/2020 Expected LOS: Initial Reviewer: [email or web address] Initial Review Date: 04/20/2020 Generated: 04/22/20 11:56 pm Comments DCP- Discharge Planning Updated by [email or web address]: Saritha Donato on 04/22/20 9:[address] CM spoke with patient's daughter and she stated that the patient has [employer] as her part D. CM called [facility] and they stated that the med Eliquis was covered and had already been filled. Patient and her daughter had discussed HH options and they wanted her to have Home Health Services. CLARIBEL signed and CM sent referral to [facility]. [facility] will admit patient on Monday 04/23. D/C IMM signed 04/21/20 @ 1410. CM will continue to follow and assist as needed with discharge planning/ needs. DCP- Discharge Planning Updated by [email or web address]: Mindy Sandoval on 04/20/20 5:[address] CM met with patient to discuss initial discharge planning. Patient is in agreement to proceed with the assessment with present. Patient reports that she lives at home independently with her g-son, Moy Kearney, and he is at home at night-time. Patient is alert/oriented. Stairs/steps: 4 w/rail. PCP: . Pharmacy: [address] ([address]), [address] Patient states they have been able to obtain all of their prescribed medications. HHS: No. DME: walker, quad cane, rollator w/seat, shower bench, walk-in shower, grab bars. Patient gives permission to speak with family members/care givers. Emergency contact: Matt Abdul (son) [phone]. Patient is Independent with all ADL's, medication management WELL SERVICE DERRICK WORKER. CM discussed the availability of HH, Rehab, DME services. Patient denies the need for additional services at this time and feels safe returning to previous environment. Patient denies being hospitalized within the past 30 days. Patient denies the use of community resources WELL SERVICE DERRICK WORKER. Transportation at time of discharge: Moy Kearney. DCP- Discharge Planning Updated by [email or web address]: Abeba Gerard on 04/20/20 4:[address] Patient Name: PHAN ABDUL Admission Status: Elective Accout number: [id number] Admission Date: 04-18-2020 : 1935 Admission Diagnosis:ACUTE EMBOLISM AND THOMBOS UNSP DEEP VEINS OF L LOW EXT Attending: JEANNIE UNDERWOOD Current LOS: 2 Anticipated DC Date: Planned Disposition: Home Primary Insurance: MEDICARE A & B Discharge Planning Comments: I CALLED MEDICARE D AND HER MEDICARE D IS SHOWING INACTIVE AT THIS TIME, THEREFORE THEY CANNOT TELL ME WHICH MEDICATION WOULD BE LESS EXPENSIVE. I HAVE A FREE 30 DAY TRIAL ON XARELTO OR ELIQUIS THAT WE CAN GIVE HER. I WILL LEAVE IT IN THE STRUCTURES ASSEMBLERBISQUE FINISHER FOR THE WEEKEND STRUCTURES ASSEMBLER. PATIENT ANTICIPATES DISCHARGE TOMORROW. CM WILL FOLLOW AND ASSIST NEEDED. Chief Power Dispatcher: Abeba Gerard DCP- Discharge Planning Updated by [email or web address]: Abeba Gerard on 04/20/20 1:[address] Patient Name: PHAN ABDUL Admission Status: Elective Accout number: [id number] Admission Date: 04-18-2020 : 1935 Admission Diagnosis:ACUTE EMBOLISM AND THOMBOS UNSP DEEP VEINS OF L LOW EXT Attending: JEANNIE UNDERWOOD Current LOS: 2 Anticipated DC Date: Planned Disposition: Home Primary Insurance: MEDICARE A & B Discharge Planning Comments: CM met with patient at bedside after explaining CM role and obtaining verbal consent. CM discussed availability / needs of home health, REHAB and medical equipment. PATIENT DENIES ANY DISCHARGE NEEDS. STATES GRANDSON LIVES WITH HER AND HELPS HER. DOES NOT WANT HH. PLAN IS FOR POSSIBLE DC TOMORROW. CM TO CALL HER PHARMACY TO SEE WHAT PRESCRIPTION WILL BE LESS EXPENSIVE FOR HER INSTEAD OF COUMADIN. Chief Power Dispatcher: Abeba Gerard DCPIA - Discharge Planning Initial Assessment Updated by [email or web address]: Abeba Gerard on 04/20/20 2:25 pm * Is the patient Alert and Oriented? Yes * PCP KJ * Pharmacy [facility]. * Preadmission Environment Home with Family * ADLs Independent * Other Equipment WALKER,CANE, SC * Community resources currently utilized None * Additional services required to return to the preadmission environment? No * Can the patient safely return to the preadmission environment? Yes * Has this patient been hospitalized within the prior 30 days at any hospital? No Coverage Notice Reviewer: [email or web address] Tad Donato Notice Issued Date-Time: 04/21/2020 14:10 Notice Type: IM Discharge Notice Notice Delivered To: Patient Relationship to Patient: Self Recreational Therapy Aide Name: Delivery Method: HAND - Hand Delivered Cat Days: Prior Verbal Notification: Recipient Understood Notice: Yes Recipient Signature: Med Rec Note Co-signed by Attending: Coverage Notice Comment: Reviewer: [email or web address] Donato Notice Issued Date-Time: 04/21/2020 14:10 Notice Type: Patient Choice Letter Notice Delivered To: Patient Relationship to Patient: Recreational Therapy Aide Name: Delivery Method: HAND - Hand Delivered Cat Days: Prior Verbal Notification: Recipient Understood Notice: Yes Recipient Signature: Yes Med Rec Note Co-signed by Attending: Coverage Notice Comment: no preference in home health Last DP export: 04/22/20 10:03 a Patient Name: PHAN ABDUL Page [phone] at 2256 All edits/amendments must be made on the electronic document DICTATION DATE: 04/22/202255 MOBILE DEVICE DEVELOPER: GINA 04/22/202255 RPT#: [id number] DC DATE:04/21/20 STATUS: DIS IN [facility] [address] [place] [address] END OF REPORT
== END 2020-04-21 14:46 | disposition home health service (06) | DRG 301 ==
LOC: D.MS 15:47
PROVIDERS: Emergency Medicine; ADMIT Family Medicine; ATTEND Family Medicine
DX: I82.402 Acute embolism and thrombosis of unspecified deep veins of left lower extremity (principal); E11.9 Type 2 diabetes mellitus without complications; I10 Essential (primary) hypertension; R41.81 Age-related cognitive decline; I48.91 Unspecified atrial fibrillation